=== PATIENT | female | born 1995 | race Caucasian/White ===

== ENCOUNTER 2016-07-04 04:24 | Emergency (ER) | payer OTHER ==
[2016-07-04 05:06] VITALS: RESP 16
[2016-07-04 05:23] LABS: Glucose,Whole Blood 406 mg/dL (75-99)
[2016-07-04] MEDS ORDERED: SODIUM CHLORIDE 0.9% 2,000 ML IV ONE (05:31)
--- NOTE | 2016-07-04 05:34 | ED ---
General Adult HPI - General Chief complaint: Recheck/Abnormal Lab/Rx Stated complaint: Hyperglycemia Time Seen by Provider: 07/04/16 05:08 Source: patient Mode of arrival: ambulatory Limitations: no limitations - History of Present Illness Initial comments: This patient is 21-year-old woman who presents with complaint that she checked her blood sugar tonight and it was over 400. Patient states that she has history of diabetes, and that her insurance lapsed and she is therefore not had any of her medication nor any testing supplies. The patient states she has been feeling rundown, having polyuria and polydipsia, and that a friend was able to check her blood sugar and found it to be she thinks 430s. Patient denies any symptoms of infection other than she had been having some right ear pressure. -: days(s) - Related Data Previous Rx's Medication Instructions Recorded Insulin Glargine [Lantus] 10 unit SQ DAILY #1 vial 07/04/16 Allergies Allergy/AdvReac Type Severity Reaction Status Date / Time phenol [From Chloraseptic] Allergy Unknown Verified 01/26/16 16:02 sodium phenolate Allergy Unknown Verified 01/26/16 16:02 [From Chloraseptic] Review of Systems ROS Statement: Those systems with pertinent positive or pertinent negative responses have been documented in the HPI. ROS Other: All systems not noted in ROS Statement are negative. Constitutional: Denies: fever, chills Eyes: Denies: vision change ENT: Reports: ear pain. Denies: throat pain, hearing loss, congestion Respiratory: Denies: cough, dyspnea Cardiovascular: Denies: chest pain, palpitations, edema, syncope Endocrine: Reports: fatigue, polydipsia, polyuria Gastrointestinal: Denies: abdominal pain, nausea, vomiting, diarrhea Genitourinary: Denies: dysuria, hematuria Musculoskeletal: Denies: arthralgia Skin: Denies: rash Neurological: Denies: headache, weakness, numbness Past Medical History Past Medical History: Asthma, Diabetes Mellitus, Hypertension Additional Past Medical History / Comment(s): PCOS, migraines, MOOD DISORDER, BORDERLINE PERSONALITY History of Any Multi-Drug Resistant Organisms: None Reported Past Surgical History: No Surgical Hx Reported Past Psychological History: Anxiety Smoking Status: Current every day smoker Past Alcohol Use History: None Reported Past Drug Use History: None Reported General Exam Limitations: no limitations General appearance: alert, in no apparent distress, obese Head exam: Present: atraumatic, normocephalic Eye exam: Present: normal appearance. Absent: scleral icterus, conjunctival injection ENT exam: Present: TM's normal bilaterally, normal external ear exam Neck exam: Present: normal inspection, full ROM. Absent: meningismus Respiratory exam: Present: normal lung sounds bilaterally. Absent: respiratory distress, wheezes, rales, rhonchi, stridor Cardiovascular Exam: Present: regular rate, normal rhythm, normal heart sounds. Absent: systolic murmur, diastolic murmur, rubs, gallop GI/Abdominal exam: Present: soft. Absent: tenderness, guarding, rebound, mass Extremities exam: Present: normal inspection, normal capillary refill. Absent: pedal edema, calf tenderness Back exam: Present: normal inspection. Absent: CVA tenderness (R), CVA tenderness (L) Neurological exam: Present: alert Skin exam: Present: warm, dry, intact, normal color. Absent: rash Course Vital Signs 07/04/16 05:03 Temperature 97.6 F Pulse Rate 105 H Respiratory 16 Rate Blood Pressure 135/83 O2 Sat by Pulse 97 Oximetry Medical Decision Making - Lab Data Result diagrams: 07/04/16 05:45 07/04/16 05:45 Lab Results 07/04/16 07/04/16 07/04/16 Range/Units 05:22 05:45 05:45 WBC (3.8-10.6) k/uL RBC (3.80-5.40) m/uL Hgb (11.4-16.0) gm/dL Hct (34.0-46.0) % MCV (80.0-100.0) fL MCH (25.0-35.0) pg MCHC (31.0-37.0) g/dL RDW (11.5-15.5) % Plt Count (150-450) k/uL Neutrophils % % Lymphocytes % % Monocytes % % Eosinophils % % Basophils % % Neutrophils # (1.3-7.7) k/uL Lymphocytes # (1.0-4.8) k/uL Monocytes # (0-1.0) k/uL Eosinophils # (0-0.7) k/uL Basophils # (0-0.2) k/uL Microcytosis Sodium 140 (137-145) mmol/L Potassium 4.1 (3.5-5.1) mmol/L Chloride 99 (98-107) mmol/L Carbon Dioxide 25 (22-30) mmol/L Anion Gap 16 mmol/L BUN 9 (7-17) mg/dL Creatinine 0.37 L (0.52-1.04) mg/dL Est GFR (MDRD) Af Amer >60 (>60 ml/min/1.73 sqM) Est GFR (MDRD) Non-Af >60 (>60 ml/min/1.73 sqM) Glucose 385 H (74-99) mg/dL POC Glucose (mg/dL) 406 H (75-99) mg/dL POC Glu Facilities Maintenance Assistant ID Nitin Dias Calcium 9.7 (8.4-10.2) mg/dL Urine Color Urine Appearance (Clear) Urine pH (5.0-8.0) Ur Specific [place] (1.001-1.035) Urine Protein (Negative) Urine Glucose (UA) (Negative) Urine Ketones (Negative) Urine Blood (Negative) Urine Nitrate (Negative) Urine Bilirubin (Negative) Urine Urobilinogen (<2.0) mg/dL Ur Leukocyte Esterase (Negative) Urine RBC (0-5) /hpf Urine WBC (0-5) /hpf Ur Squamous Epith Cells (0-4) /hpf Urine HCG, Qual (Not Detectd) Acetone, Qual Negative (Negative) 07/04/16 07/04/16 07/04/16 Range/Units 05:45 07:30 07:30 WBC 12.3 H (3.8-10.6) k/uL RBC 5.22 (3.80-5.40) m/uL Hgb 12.6 (11.4-16.0) gm/dL Hct 39.5 (34.0-46.0) % MCV 75.5 L (80.0-100.0) fL MCH 24.1 L (25.0-35.0) pg MCHC 32.0 (31.0-37.0) g/dL RDW 14.3 (11.5-15.5) % Plt Count 279 (150-450) k/uL Neutrophils % 64 % Lymphocytes % 29 % Monocytes % 3 % Eosinophils % 2 % Basophils % 1 % Neutrophils # 7.9 H (1.3-7.7) k/uL Lymphocytes # 3.5 (1.0-4.8) k/uL Monocytes # 0.4 (0-1.0) k/uL Eosinophils # 0.3 (0-0.7) k/uL Basophils # 0.1 (0-0.2) k/uL Microcytosis Slight Sodium (137-145) mmol/L Potassium (3.5-5.1) mmol/L Chloride (98-107) mmol/L Carbon Dioxide (22-30) mmol/L Anion Gap mmol/L BUN (7-17) mg/dL Creatinine (0.52-1.04) mg/dL Est GFR (MDRD) Af Amer (>60 ml/min/1.73 sqM) Est GFR (MDRD) Non-Af (>60 ml/min/1.73 sqM) Glucose (74-99) mg/dL POC Glucose (mg/dL) (75-99) mg/dL POC Glu Facilities Maintenance Assistant ID Calcium (8.4-10.2) mg/dL Urine Color Light Yellow Urine Appearance Clear (Clear) Urine pH 6.0 (5.0-8.0) Ur Specific [place] 1.032 (1.001-1.035) Urine Protein Negative (Negative) Urine Glucose (UA) 4+ H (Negative) Urine Ketones Negative (Negative) Urine Blood Moderate H (Negative) Urine Nitrate Negative (Negative) Urine Bilirubin Negative (Negative) Urine Urobilinogen <2.0 (<2.0) mg/dL Ur Leukocyte Esterase Negative (Negative) Urine RBC 2 (0-5) /hpf Urine WBC 3 (0-5) /hpf Ur Squamous Epith Cells 5 H (0-4) /hpf Urine HCG, Qual Not Detected (Not Detectd) Acetone, Qual (Negative) 07/04/16 Range/Units 07:31 WBC (3.8-10.6) k/uL RBC (3.80-5.40) m/uL Hgb (11.4-16.0) gm/dL Hct (34.0-46.0) % MCV (80.0-100.0) fL MCH (25.0-35.0) pg MCHC (31.0-37.0) g/dL RDW (11.5-15.5) % Plt Count (150-450) k/uL Neutrophils % % Lymphocytes % % Monocytes % % Eosinophils % % Basophils % % Neutrophils # (1.3-7.7) k/uL Lymphocytes # (1.0-4.8) k/uL Monocytes # (0-1.0) k/uL Eosinophils # (0-0.7) k/uL Basophils # (0-0.2) k/uL Microcytosis Sodium (137-145) mmol/L Potassium (3.5-5.1) mmol/L Chloride (98-107) mmol/L Carbon Dioxide (22-30) mmol/L Anion Gap mmol/L BUN (7-17) mg/dL Creatinine (0.52-1.04) mg/dL Est GFR (MDRD) Af Amer (>60 ml/min/1.73 sqM) Est GFR (MDRD) Non-Af (>60 ml/min/1.73 sqM) Glucose (74-99) mg/dL POC Glucose (mg/dL) 340 H (75-99) mg/dL POC Glu Facilities Maintenance Assistant ID Zulma Moss Calcium (8.4-10.2) mg/dL Urine Color Urine Appearance (Clear) Urine pH (5.0-8.0) Ur Specific [place] (1.001-1.035) Urine Protein (Negative) Urine Glucose (UA) (Negative) Urine Ketones (Negative) Urine Blood (Negative) Urine Nitrate (Negative) Urine Bilirubin (Negative) Urine Urobilinogen (<2.0) mg/dL Ur Leukocyte Esterase (Negative) Urine RBC (0-5) /hpf Urine WBC (0-5) /hpf Ur Squamous Epith Cells (0-4) /hpf Urine HCG, Qual (Not Detectd) Acetone, Qual (Negative) Disposition Clinical Impression: Hyperglycemia, Diabetes Disposition: HOME SELF-CARE Condition: Fair Instructions: Diabetic Hyperglycemia (ED) Prescriptions: Insulin Glargine [Lantus] 10 unit SQ DAILY #1 vial Referrals: Irineo Armstrong MD [Primary Care Provider] - 1-2 days
[2016-07-04 05:56] LABS: Basophils # (A) 0.1 k/uL (0-0.2); Basophils % (A) 1 %; CH 24.7; CHCM 32.8; Eosinophils # (A) 0.3 k/uL (0-0.7); Eosinophils % (A) 2 %; HCT 39.5 % (34.0-46.0); HDW 2.93; HGB 12.6 gm/dL (11.4-16.0); Luc % (Auto) 1; Lymphocytes # (A) 3.5 k/uL (1.0-4.8); Lymphocytes % (A) 29 %; MCH 24.1 pg (25.0-35.0); MCV 75.5 fL (80.0-100.0); Mean Platelet Volume 7.7; Microcytosis Slight; Monocytes # (A) 0.4 k/uL (0-1.0); Monocytes % (A) 3 %; Neutrophils # (A) 7.9 k/uL (1.3-7.7); Neutrophils % (A) 64 %; RBC 5.22 m/uL (3.80-5.40); RDW 14.3 % (11.5-15.5); WBC 12.3 k/uL (3.8-10.6); WBC (Perox) 12.44
[2016-07-04 06:07] LABS: Anion Gap 16 mmol/L; Blood Urea Nitrogen 9 mg/dL (7-17); Calcium 9.7 mg/dL (8.4-10.2); Carbon Dioxide 25 mmol/L (22-30); Chloride 99 mmol/L (98-107); Glucose 385 mg/dL (74-99); Non-African American GFR(MDRD) >60 (>60 ml/min/1.73 sqM); Potassium 4.1 mmol/L (3.5-5.1); Sodium 140 mmol/L (137-145)
[2016-07-04] MEDS ORDERED: IBUPROFEN 400 MG TAB PO STA (06:17)
[2016-07-04] MEDS ORDERED: ACETAMINOPHEN TAB 325 MG TAB PO STA (06:17)
[2016-07-04] MEDS ORDERED: INSULIN REGULAR 100 UNIT/ML VIAL SQ STA (06:53)
[2016-07-04 07:32] LABS: Glucose,Whole Blood 340 mg/dL (75-99)
[2016-07-04 07:49] LABS: Appearance,Urine Clear (Clear); Bilirubin,Urine Negative (Negative); Glucose,Urine (UA) 4+ (Negative); Ketones,Urine Negative (Negative); Leukocyte Esterase,Urine Negative (Negative); Nitrite,Urine Negative (Negative); Particle Count 1560; Protein,Urine Negative (Negative); RBC,Urine 2 /hpf (0-5); Specific Gravity,Urine 1.032 (1.001-1.035); Squamous Epithelial Cell,Urine 5 /hpf (0-4); UA Billing (MACRO vs. MICRO) MICRO; Urobilinogen,Urine <2.0 mg/dL (<2.0); WBC,Urine 3 /hpf (0-5)
[2016-07-04] MEDS ORDERED: INSULIN LISPRO (humaLOG) 300 UNIT/3 ML VIAL SQ ONE (08:05)
[2016-07-04 08:58] LABS: Glucose,Whole Blood 312 mg/dL (75-99)
[2016-07-04 09:12] VITALS: BP 113/56; PULSE 90; TEMP 97.4
== END 2016-07-04 09:28 | disposition home or self-care (01) ==
LOC: EC 04:24
DX: E11.65 Type 2 diabetes mellitus with hyperglycemia (principal); E66.9 Obesity, unspecified; F17.200 Nicotine dependence, unspecified, uncomplicated; Z88.8 Allergy status to other drugs, medicaments and biological substances; Z79.4 Long term (current) use of insulin
CPT/HCPCS: 36415; 80048; 81001; 81025; 82009; 85025; 96360; 96361; 99283

== ENCOUNTER 2016-11-03 21:59 | Emergency (ER) | payer OTHER ==
[2016-11-03 22:05] VITALS: TEMP 99.9
[2016-11-03] MEDS ORDERED: KETOROLAC 60 MG/2 ML VIAL IM STA (22:28)
[2016-11-03] MEDS ORDERED: CYCLOBENZAPRINE 10 MG TAB PO STA (22:28)
--- NOTE | 2016-11-03 22:31 | ED ---
General Adult HPI - General Chief complaint: Extremity Injury, Upper Stated complaint: back pain Time Seen by Provider: 11/03/16 22:14 Source: patient, RN notes reviewed Mode of arrival: ambulatory Limitations: no limitations - History of Present Illness Initial comments: Patient's 21-year-old female presents to the emergency room for evaluation of back pain. Patient states yesterday while at work she was bending down to pick something up and felt a sharp pain in her mid right back. Patient states she thought the pain would go away this morning. Patient states she woke up and began having worsening pain. Patient states that she took Naprosyn with no relief of symptoms. Patient states it causes her pain to walk or move. Patient denies paresthesias. Patient denies saddle anesthesia. Patient denies urinary fecal incontinence. Patient denies any pain over her spine. Patient denies any fall or trauma to her back. - Related Data Home Medications Medication Instructions Recorded Confirmed Naproxen Sodium [Aleve] 220 mg PO DAILY PRN 11/03/16 11/03/16 Previous Rx's Medication Instructions Recorded traMADol HCl [Ultram] 50 mg PO Q4H PRN #15 tab 11/03/16 Allergies Allergy/AdvReac Type Severity Reaction Status Date / Time phenol [From Chloraseptic] Allergy Unknown Verified 11/03/16 22:21 sodium phenolate Allergy Unknown Verified 11/03/16 22:21 [From Chloraseptic] Review of Systems ROS Statement: Those systems with pertinent positive or pertinent negative responses have been documented in the HPI. ROS Other: All systems not noted in ROS Statement are negative. Past Medical History Past Medical History: Asthma, Diabetes Mellitus, Hypertension Additional Past Medical History / Comment(s): PCOS, migraines, MOOD DISORDER, BORDERLINE PERSONALITY History of Any Multi-Drug Resistant Organisms: None Reported Past Surgical History: No Surgical Hx Reported Past Psychological History: Anxiety Smoking Status: Current every day smoker Past Alcohol Use History: None Reported Past Drug Use History: None Reported General Exam - General Exam Comments Initial Comments: Sitting in exam room, no acute distress. Limitations: no limitations General appearance: alert, in no apparent distress Head exam: Present: atraumatic, normocephalic, normal inspection Eye exam: Present: normal appearance ENT exam: Present: normal exam Neck exam: Present: normal inspection Respiratory exam: Present: normal lung sounds bilaterally. Absent: respiratory distress Extremities exam: Present: normal inspection Back exam: Present: paraspinal tenderness (Paraspinal tenderness on the right thoracic spine area) Neurological exam: Present: alert, oriented X3, CN II-XII intact Psychiatric exam: Present: normal affect, normal mood Skin exam: Present: warm, dry, intact, normal color. Absent: rash Course Vital Signs 11/03/16 11/03/16 22:01 23:07 Temperature 99.9 F H Pulse Rate 102 H 89 Respiratory 20 16 Rate Blood Pressure 160/114 134/81 O2 Sat by Pulse 98 95 Oximetry Medical Decision Making - Medical Decision Making Patient is a 21-year-old female presents to the emergency room for evaluation of right upper back pain. X-ray shows no acute findings. Patient will be sent home with pain medications and advised follow-up with primary care provider symptoms are not improving. Patient states she understands everything that was discussed with her. Return parameters discussed. Case discussed with Dr. Zheng. - Radiology Data Radiology results: report reviewed, image reviewed Disposition Clinical Impression: Muscle strain of right upper back Disposition: HOME SELF-CARE Condition: Good Instructions: Thoracic Back Strain (ED) Additional Instructions: Continue taking ibuprofen or Naprosyn as needed for pain. Take tramadol as needed for severe pain. Warm moist heat. Please follow-up with primary care provider if symptoms are not improving. Refrain from heavy lifting or strenuous physical activity for the next 7-10 days. If any new symptom arises or symptoms worse, return to ER as soon as possible. Prescriptions: traMADol HCl [Ultram] 50 mg PO Q4H PRN #15 tab PRN Reason: Pain Referrals: Mikel Mauro MD [Primary Care Provider] - 1-2 days Time of Disposition: 23:05
--- NOTE | 2016-11-03 22:54 | XR ---
EXAM: XR Thoracic Spine, 3 Views CLINICAL HISTORY: Reason: Pain TECHNIQUE: Frontal, lateral and swimmer's views of the thoracic spine. COMPARISON: No relevant prior studies available. FINDINGS: Vertebrae: No acute fracture or malalignment. Disc spaces: Subtle multilevel endplate irregularity in the lower thoracic spine; differential includes degenerative change versus Scheuermann's disease. Soft tissues: Unremarkable. IMPRESSION: 1. No acute fracture or malalignment. 2. Subtle multilevel endplate irregularity in the lower thoracic spine; differential includes degenerative change versus Scheuermann's disease.
[2016-11-03] MEDS ORDERED: HYDROmorphone 1 MG/ML 1 ML SYRINGE IM STA (23:03)
[2016-11-03 23:07] VITALS: BP 134/81; PULSE 89; RESP 16
== END 2016-11-03 23:20 | disposition home or self-care (01) ==
LOC: EC 21:59
DX: S29.012A Strain of muscle and tendon of back wall of thorax, initial encounter (principal); F17.200 Nicotine dependence, unspecified, uncomplicated; Z88.8 Allergy status to other drugs, medicaments and biological substances; X58.XXXA Exposure to other specified factors, initial encounter
CPT/HCPCS: 72072; 99283; 96372 ×2; J1885; J1170

== ENCOUNTER 2017-06-15 19:14 | Emergency (ER) | payer OTHER ==
--- NOTE | 2017-06-15 20:15 | ED ---
General Adult HPI - General Chief complaint: Abdominal Pain Stated complaint: abdominal pain/vomiting/migraine Time Seen by Provider: 06/15/17 20:12 Source: patient Mode of arrival: ambulatory Limitations: no limitations - History of Present Illness Initial comments: Serina is a morbidly obese 22-year-old female past medical history of type 2 diabetes who presents to the emergency department today for evaluation of 1 day of nausea, vomiting and diarrhea. Patient reports that due to insurance issues she has not been able to get any medications for her diabetes for approximately one year. She does report that she was previously on insulin as well as metformin. She states that she has not checked her blood glucose in over a year either. She states that today she woke up with some crampy abdominal pain and subsequently developed nonbloody diarrhea as well as nausea and WANTS to nonbloody nonbilious emesis. Patient reports that no one else at home has similar symptoms and that they all ate the same food. She doesn't believe she ate any thing that would've caused this. She does know multiple people who have similar symptoms. Patient describes her pain is diffuse, cramping with stabbing pain that migrates all over her abdomen. She cannot identify one spot that is worse in any of the others. Patient denies any fevers, chills she does report episodes of diaphoresis when vomiting. She denies any chest pain or shortness of breath. She has no history of any GI pathology, gastroparesis, inflammatory bowel disease. She reports that she has not been compliant with any medications or seen any physicians in nearly a year. - Related Data Previous Rx's Medication Instructions Recorded Ondansetron Odt [Zofran Odt] 4 mg PO Q12HR PRN #8 tab 06/15/17 metFORMIN HCL [Glucophage] 500 mg PO BID #60 tab 06/15/17 Allergies Allergy/AdvReac Type Severity Reaction Status Date / Time phenol [From Chloraseptic] Allergy Unknown Verified 06/15/17 19:55 sodium phenolate Allergy Unknown Verified 06/15/17 19:55 [From Chloraseptic] Review of Systems ROS Statement: Those systems with pertinent positive or pertinent negative responses have been documented in the HPI. ROS Other: All systems not noted in ROS Statement are negative. Constitutional: Reports: chills ENT: Denies: ear pain, throat pain Respiratory: Denies: cough, dyspnea Cardiovascular: Reports: palpitations. Denies: chest pain Endocrine: Reports: fatigue Gastrointestinal: Reports: abdominal pain, nausea, vomiting, diarrhea. Denies: constipation, hematemesis, melena, hematochezia Genitourinary: Denies: urgency, dysuria, abnormal menses Musculoskeletal: Denies: back pain Skin: Denies: rash, lesions Neurological: Denies: headache, weakness Psychiatric: Denies: anxiety, depression Hematological/Lymphatic: Denies: easy bleeding, easy bruising Past Medical History Past Medical History: Asthma, Diabetes Mellitus, Hypertension Additional Past Medical History / Comment(s): PCOS, migraines, MOOD DISORDER, BORDERLINE PERSONALITY History of Any Multi-Drug Resistant Organisms: None Reported Past Surgical History: No Surgical Hx Reported Past Psychological History: Anxiety Smoking Status: Current every day smoker Past Alcohol Use History: None Reported Past Drug Use History: Marijuana General Exam Limitations: no limitations General appearance: alert, obese Head exam: Present: atraumatic, normocephalic Eye exam: Present: PERRL ENT exam: Present: mucous membranes dry Neck exam: Present: normal inspection Respiratory exam: Absent: respiratory distress, wheezes Cardiovascular Exam: Present: normal rhythm, tachycardia GI/Abdominal exam: Present: soft, tenderness, normal bowel sounds. Absent: distended, guarding, rebound, rigid, diminished bowel sounds, hyperactive bowel sounds, hypoactive bowel sounds, organomegaly, mass, bruit, pulsatile mass Extremities exam: Present: full ROM, normal capillary refill. Absent: pedal edema Back exam: Present: normal inspection Neurological exam: Present: alert, oriented X3, normal gait Psychiatric exam: Present: anxious Skin exam: Present: warm, dry Course Vital Signs 06/15/17 06/15/17 06/15/17 19:28 21:11 22:53 Temperature 99.8 F H 100.4 F H 98.6 F Pulse Rate 120 H 110 H 102 H Respiratory 18 20 16 Rate Blood Pressure 130/82 121/67 126/68 O2 Sat by Pulse 96 98 95 Oximetry 06/15/17 06/16/17 23:41 00:38 Temperature 98.6 F Pulse Rate 100 Respiratory 20 Rate Blood Pressure 135/65 O2 Sat by Pulse 96 Oximetry Medical Decision Making - Medical Decision Making Patient was seen and evaluated, history was obtained from the patient Patient with a medical history of insulin-dependent diabetes, noncompliant with medications for greater than 1 year presenting with nausea, vomiting and diarrhea. On exam the patient appears dehydrated. [id number] glucose was greater than 250 Workup for possible DKA was initiated IV fluids and Zofran given Labs with no evidence of DKA, no evidence of PRO is noted to be hyperglycemic with mildly elevated liver enzymes due to the patient's diffuse abdominal pain and elevated liver enzymes but the CT and in ultrasound were ordered Neither CT or ultrasound revealed any acute pathology, both confirmed a diagnosis of fatty liver. Patient reports feeling better after first liter fluid however her lactic acid is elevated at 3.1 therefore I will give additional liter fluid. Patient's tachycardia resolved and she is resting comfortably in bed. I discussed with the patient her need to control her diabetes, she does state that she was previously on metformin however due to insurance issues she has not had any medications for one year. Advised her that I believe metformin is available at a relatively inexpensive cost through multiple different pharmacies and that I will plan to prescribe her metformin. An extensive conversation with the patient regarding the importance of diabetes management in the possibility of kidney and microvascular damage from uncontrolled diabetes. Patient expressed understanding of this. Patient was again reevaluated after second liter fluid. Heart rate has improved she remains hemodynamically stable and in no acute distress. At this time patient would like to be discharged home. I advised her I will prescribe by mouth Zofran for her nausea. I advised her that I will not prescribe anything for the diarrhea as I feel it is important that she just maintains hydration. Patient expressed understanding of this. Upon standing believe the patient experienced nausea and had an episode of nonbloody nonbilious emesis. Additional medications were ordered but the patient chose to be discharged. - Lab Data Result diagrams: 06/15/17 21:04 06/15/17 21:04 Lab Results 06/15/17 06/15/17 06/15/17 Range/Units 20:30 20:30 20:36 WBC (3.8-10.6) k/uL RBC (3.80-5.40) m/uL Hgb (11.4-16.0) gm/dL Hct (34.0-46.0) % MCV (80.0-100.0) fL MCH (25.0-35.0) pg MCHC (31.0-37.0) g/dL RDW (11.5-15.5) % Plt Count (150-450) k/uL Neutrophils % % Lymphocytes % % Monocytes % % Eosinophils % % Basophils % % Neutrophils # (1.3-7.7) k/uL Lymphocytes # (1.0-4.8) k/uL Monocytes # (0-1.0) k/uL Eosinophils # (0-0.7) k/uL Basophils # (0-0.2) k/uL VBG pH (7.31-7.41) VBG pCO2 (37-51) mmHg VBG HCO3 (24-28) mmol/L Sodium (137-145) mmol/L Potassium (3.5-5.1) mmol/L Chloride (98-107) mmol/L Carbon Dioxide (22-30) mmol/L Anion Gap mmol/L BUN (7-17) mg/dL Creatinine (0.52-1.04) mg/dL Est GFR (MDRD) Af Amer (>60 ml/min/1.73 sqM) Est GFR (MDRD) Non-Af (>60 ml/min/1.73 sqM) Glucose (74-99) mg/dL POC Glucose (mg/dL) 278 H (75-99) mg/dL POC Glu Cream Beater ID Paulina Loaiza Osmolality ([id number]) mosm/kg Lactic Ac Sepsis Rflx Plasma Lactic Acid Castro (0.7-2.0) mmol/L Calcium (8.4-10.2) mg/dL Magnesium (1.6-2.3) mg/dL Total Bilirubin (0.2-1.3) mg/dL AST (14-36) U/L ALT (9-52) U/L Alkaline Phosphatase (38-126) U/L Total Protein (6.3-8.2) g/dL Albumin (3.5-5.0) g/dL Lipase (23-300) U/L Urine Color Yellow Urine Appearance Cloudy H (Clear) Urine pH 5.5 (5.0-8.0) Ur Specific Mccrory 1.034 (1.001-1.035) Urine Protein 1+ H (Negative) Urine Glucose (UA) 4+ H (Negative) Urine Ketones 2+ H (Negative) Urine Blood Negative (Negative) Urine Nitrite Negative (Negative) Urine Bilirubin Negative (Negative) Urine Urobilinogen <2.0 (<2.0) mg/dL Ur Leukocyte Esterase Negative (Negative) Urine RBC 2 (0-5) /hpf Urine WBC 8 H (0-5) /hpf Ur Squamous Epith Cells 15 H (0-4) /hpf Urine Bacteria Rare H (None) /hpf Urine Mucus Rare H (None) /hpf Urine HCG, Qual Not Detected (Not Detectd) Acetone, Qual (Negative) 06/15/17 06/15/17 06/15/17 Range/Units 21:04 21:04 21:04 WBC 12.7 H (3.8-10.6) k/uL RBC 5.85 H (3.80-5.40) m/uL Hgb 14.5 (11.4-16.0) gm/dL Hct 45.8 (34.0-46.0) % MCV 78.3 L (80.0-100.0) fL MCH 24.8 L (25.0-35.0) pg MCHC 31.6 (31.0-37.0) g/dL RDW 15.8 H (11.5-15.5) % Plt Count 226 (150-450) k/uL Neutrophils % 91 % Lymphocytes % 5 % Monocytes % 2 % Eosinophils % 1 % Basophils % 0 % Neutrophils # 11.6 H (1.3-7.7) k/uL Lymphocytes # 0.7 L (1.0-4.8) k/uL Monocytes # 0.2 (0-1.0) k/uL Eosinophils # 0.1 (0-0.7) k/uL Basophils # 0.1 (0-0.2) k/uL VBG pH 7.40 (7.31-7.41) VBG pCO2 38 (37-51) mmHg VBG HCO3 23 L (24-28) mmol/L Sodium 137 (137-145) mmol/L Potassium 4.4 (3.5-5.1) mmol/L Chloride 98 (98-107) mmol/L Carbon Dioxide 22 (22-30) mmol/L Anion Gap 17 mmol/L BUN 13 (7-17) mg/dL Creatinine 0.40 L (0.52-1.04) mg/dL Est GFR (MDRD) Af Amer >60 (>60 ml/min/1.73 sqM) Est GFR (MDRD) Non-Af >60 (>60 ml/min/1.73 sqM) Glucose 295 H (74-99) mg/dL POC Glucose (mg/dL) (75-99) mg/dL POC Glu Cream Beater ID Osmolality 291 (280-301) mosm/kg Lactic Ac Sepsis Rflx Plasma Lactic Acid Castro (0.7-2.0) mmol/L Calcium 9.7 (8.4-10.2) mg/dL Magnesium 1.4 L (1.6-2.3) mg/dL Total Bilirubin 0.6 (0.2-1.3) mg/dL AST 38 H (14-36) U/L ALT 80 H (9-52) U/L Alkaline Phosphatase 104 (38-126) U/L Total Protein 7.7 (6.3-8.2) g/dL Albumin 4.5 (3.5-5.0) g/dL Lipase 45 (23-300) U/L Urine Color Urine Appearance (Clear) Urine pH (5.0-8.0) Ur Specific Mccrory (1.001-1.035) Urine Protein (Negative) Urine Glucose (UA) (Negative) Urine Ketones (Negative) Urine Blood (Negative) Urine Nitrite (Negative) Urine Bilirubin (Negative) Urine Urobilinogen (<2.0) mg/dL Ur Leukocyte Esterase (Negative) Urine RBC (0-5) /hpf Urine WBC (0-5) /hpf Ur Squamous Epith Cells (0-4) /hpf Urine Bacteria (None) /hpf Urine Mucus (None) /hpf Urine HCG, Qual (Not Detectd) Acetone, Qual Negative (Negative) 06/15/17 06/15/17 Range/Units 21:04 21:28 WBC (3.8-10.6) k/uL RBC (3.80-5.40) m/uL Hgb (11.4-16.0) gm/dL Hct (34.0-46.0) % MCV (80.0-100.0) fL MCH (25.0-35.0) pg MCHC (31.0-37.0) g/dL RDW (11.5-15.5) % Plt Count (150-450) k/uL Neutrophils % % Lymphocytes % % Monocytes % % Eosinophils % % Basophils % % Neutrophils # (1.3-7.7) k/uL Lymphocytes # (1.0-4.8) k/uL Monocytes # (0-1.0) k/uL Eosinophils # (0-0.7) k/uL Basophils # (0-0.2) k/uL VBG pH (7.31-7.41) VBG pCO2 (37-51) mmHg VBG HCO3 (24-28) mmol/L Sodium (137-145) mmol/L Potassium (3.5-5.1) mmol/L Chloride (98-107) mmol/L Carbon Dioxide (22-30) mmol/L Anion Gap mmol/L BUN (7-17) mg/dL Creatinine (0.52-1.04) mg/dL Est GFR (MDRD) Af Amer (>60 ml/min/1.73 sqM) Est GFR (MDRD) Non-Af (>60 ml/min/1.73 sqM) Glucose (74-99) mg/dL POC Glucose (mg/dL) (75-99) mg/dL POC Glu Cream Beater ID Osmolality ([id number]) mosm/kg Lactic Ac Sepsis Rflx Y Plasma Lactic Acid Castro 3.1 H* (0.7-2.0) mmol/L Calcium (8.4-10.2) mg/dL Magnesium (1.6-2.3) mg/dL Total Bilirubin (0.2-1.3) mg/dL AST (14-36) U/L ALT (9-52) U/L Alkaline Phosphatase (38-126) U/L Total Protein (6.3-8.2) g/dL Albumin (3.5-5.0) g/dL Lipase (23-300) U/L Urine Color Urine Appearance (Clear) Urine pH (5.0-8.0) Ur Specific Mccrory (1.001-1.035) Urine Protein (Negative) Urine Glucose (UA) (Negative) Urine Ketones (Negative) Urine Blood (Negative) Urine Nitrite (Negative) Urine Bilirubin (Negative) Urine Urobilinogen (<2.0) mg/dL Ur Leukocyte Esterase (Negative) Urine RBC (0-5) /hpf Urine WBC (0-5) /hpf Ur Squamous Epith Cells (0-4) /hpf Urine Bacteria (None) /hpf Urine Mucus (None) /hpf Urine HCG, Qual (Not Detectd) Acetone, Qual (Negative) Disposition Clinical Impression: Hyperglycemia, Medical non-compliance, Diarrhea Disposition: HOME SELF-CARE Condition: Good Instructions: Hyperosmolar Hyperglycemic State (ED), Managing Diabetes During Sick Days (ED) Prescriptions: metFORMIN HCL [Glucophage] 500 mg PO BID #60 tab Ondansetron Odt [Zofran Odt] 4 mg PO Q12HR PRN #8 tab PRN Reason: Nausea Referrals: Mikel Mauro MD [Primary Care Provider] - 1-2 days Time of Disposition: 00:18
[2017-06-15 20:38] LABS: Glucose,Whole Blood 278 mg/dL (75-99)
[2017-06-15] MEDS ORDERED: SODIUM CHLORIDE 0.9% 1,000 ML IV ONE ×2 (20:40→22:58)
[2017-06-15 20:48] LABS: Appearance,Urine Cloudy (Clear); Bacteria,Urine Rare /hpf; Bilirubin,Urine Negative (Negative); Blood,Urine Negative (Negative); Color,Urine Yellow; Glucose,Urine (UA) 4+ (Negative); Leukocyte Esterase,Urine Negative (Negative); Mucus,Urine Rare /hpf; Nitrite,Urine Negative (Negative); PH, Urine 5.5 (5.0-8.0); Protein,Urine 1+ (Negative); RBC,Urine 2 /hpf (0-5); Specific Gravity,Urine 1.034 (1.001-1.035); Squamous Epithelial Cell,Urine 15 /hpf (0-4); Urobilinogen,Urine <2.0 mg/dL (<2.0); WBC,Urine 8 /hpf (0-5)
[2017-06-15 21:11] LABS: Ketones,Urine 2+ (Negative)
[2017-06-15 21:14] LABS: VBG PH 7.4 (7.31-7.41)
[2017-06-15 21:15] LABS: Basophils # (A) 0.1 k/uL (0-0.2); Basophils % (A) 0 %; Eosinophils # (A) 0.1 k/uL (0-0.7); Eosinophils % (A) 1 %; HCT 45.8 % (34.0-46.0); HGB 14.5 gm/dL (11.4-16.0); Lymphocytes # (A) 0.7 k/uL (1.0-4.8); Lymphocytes % (A) 5 %; MCH 24.8 pg (25.0-35.0); MCHC 31.6 g/dL (31.0-37.0); MCV 78.3 fL (80.0-100.0); Mean Platelet Volume 7.4; Monocytes # (A) 0.2 k/uL (0-1.0); Monocytes % (A) 2 %; Neutrophils # (A) 11.6 k/uL (1.3-7.7); Neutrophils % (A) 91 %; Platelet Count 226 k/uL (150-450); RBC 5.85 m/uL (3.80-5.40); RDW 15.8 % (11.5-15.5); WBC 12.7 k/uL (3.8-10.6)
[2017-06-15 21:25] LABS: ALT 80 U/L (9-52); AST 38 U/L (14-36); Albumin 4.5 g/dL (3.5-5.0); Alkaline Phosphatase 104 U/L (38-126); Anion Gap 17 mmol/L; Blood Urea Nitrogen 13 mg/dL (7-17); Calcium 9.7 mg/dL (8.4-10.2); Carbon Dioxide 22 mmol/L (22-30); Chloride 98 mmol/L (98-107); Glucose 295 mg/dL (74-99); Lipase 45 U/L (23-300); Magnesium 1.4 mg/dL (1.6-2.3); Potassium 4.4 mmol/L (3.5-5.1); Sodium 137 mmol/L (137-145); Total Bilirubin 0.6 mg/dL (0.2-1.3); Total Protein 7.7 g/dL (6.3-8.2)
[2017-06-15] MEDS ORDERED: RX INFO: IV CONTRAST WAS GIVEN 1 EACH MISC MISCELLANE PRN (21:44)
[2017-06-15] MEDS ORDERED: MORPHINE SULFATE 5 MG/ML SYRINGE IVP STA (22:10)
--- NOTE | 2017-06-15 22:34 | CT ---
EXAMINATION TYPE: CT abdomen pelvis w con DATE OF EXAM: 06/15/2017 COMPARISON: NONE HISTORY: Abd pain. N/V/D. CT DLP: 2501.3 mGycm Automated exposure control for dose reduction was used. TECHNIQUE: Helical acquisition of images was performed from the lung bases through the pelvis. CONTRAST: Performed without Oral Contrast and with IV Contrast, patient injected with 100ml mL of Omnipaque 300 . FINDINGS: Lung bases are clear of consolidation. There is no pleural effusion. There is fatty infiltration of t he liver. Spleen shows no focal defect. Spleen is enlarged and measures 16 cm. There is no pancreatic mass. Gallbladder appears normal. Bile ducts are not dilated. There is no adrenal mass. Kidneys show satisfactory contrast opacification. There is no hydronephrosi s. I see no intestinal wall thickening. There are no dilated loops. Appendix appears normal. There is no evidence of a pelvic mass. Bladder distends smoothly. There is no ascites. There is a 2 cm cyst o n the right ovary. Bony structures are intact. Uterus is anteverted.: IMPRESSION: FATTY INFILTRATION OF THE LIVER. RIGHT OVARIAN CYST. NO SIGN OF ACUTE ABDOMEN AND PELVIS. There is he patosplenomegaly.
--- NOTE | 2017-06-15 22:44 | US ---
EXAMINATION TYPE: US abdomen limited DATE OF EXAM: 06/15/2017 COMPARISON: NONE CLINICAL HISTORY: Pain. Abn labs, pain and vomiting EXAM MEASUREMENTS: Liver Length: 24.3 cm Gallbladder Wall: 0.28 cm CBD: 0.51 cm Right Kidney: 13.5 x 5.3 x 6.1 cm Pancreas: Obscured by bowel gas Liver: Increased attenuation hepatomegaly Gallbladder: No stones seen Evidence for sonographic Loera's sign: No CBD: wnl Right Kidney: No hydronephrosis or masses seen Exam limitations due to body habitus IMPRESSION: No gallstones or dilated ducts. Hepatomegaly. Echogenic liver consistent with fatty infil tration. No free fluid.
[2017-06-15] MEDS ORDERED: ONDANSETRON 4 MG/2 ML VIAL IVP STA (22:46)
[2017-06-15] MEDS ORDERED: MAGNESIUM SULFATE-D5W PMX 1 GM in DEXTROSE/WATER 1 100ML.BAG IVPB ONE (22:58)
[2017-06-15] MEDS ORDERED: INSULIN REGULAR 100 UNIT/ML VIAL SQ ONE (22:59)
[2017-06-16] MEDS ORDERED: METOCLOPRAMIDE 5 MG/ML 2 ML VIAL IVP STA (00:39)
[2017-06-16] MEDS ORDERED: diphenhydrAMINE 50 MG/ML 1 ML VIAL IVP STA (00:39)
[2017-06-16 23:12] VITALS: BP 135/65; PULSE 100; RESP 20; TEMP 98.6
== END 2017-06-16 00:39 | disposition home or self-care (01) ==
LOC: EC 19:14
DX: E11.65 Type 2 diabetes mellitus with hyperglycemia (principal); R19.7 Diarrhea, unspecified; E66.01 Morbid (severe) obesity due to excess calories; F17.200 Nicotine dependence, unspecified, uncomplicated; Z68.41 Body mass index [BMI] 40.0-44.9, adult; Z91.19 Patient's noncompliance with other medical treatment and regimen; Z91.048 Other nonmedicinal substance allergy status
CPT/HCPCS: 36415; 83930; 80053; 82803; 82009; 83605; 83690; 83735; 85025; 81001; 81025; 87040; 76705; 74177; 99284; 96365; 96375 ×2; 96361 ×2; J2405; J3475; Q9967; J2274; 87077; 87186

== ENCOUNTER 2018-03-31 20:20 | Emergency (ER) | payer OTHER ==
[2018-03-31] MEDS ORDERED: KETOROLAC 30 MG/ML 1 ML VIAL IVP STA (21:12)
[2018-03-31] MEDS ORDERED: diphenhydrAMINE 50 MG/ML 1 ML VIAL IVP STA (21:12)
[2018-03-31] MEDS ORDERED: SODIUM CHLORIDE 0.9% 1,000 ML IV ONE (21:12)
[2018-03-31] MEDS ORDERED: METOCLOPRAMIDE 5 MG/ML 2 ML VIAL IVP STA (21:12)
--- NOTE | 2018-03-31 21:28 | ED ---
Female Urogenital HPI - General Source: patient Mode of arrival: ambulatory Limitations: no limitations - History of Present Illness Last Menstrual Period: 03/24/18 <Suzanne Oliver - Last Filed: 04/01/18 02:57> <Niecy Vaca - Last Filed: 04/01/18 03:08> - General Chief complaint: Vaginal Bleeding Stated complaint: poss miscarriage Time Seen by Provider: 03/31/18 20:39 - History of Present Illness Initial comments: 22-year-old female patient presents to the emergency department today for evaluation of lower abdominal pain and heavy vaginal bleeding. Patient states that her last period ended March 19 after 6 days of light vaginal bleeding. Patient states that she started having vaginal bleeding again yesterday and pain to the right lower quadrant. Patient states that the bleeding has been heavy and she has been passing large blood clots. Patient states she has had to change her tampon every 15 minutes. States the blood clots or the size of the palm of her hand. She also reports migraine headache for the last 5 days. Patient states that she has been taking ibuprofen for the headache but has not been helping. Patient does not have history of migraines the left lasted this long. States that she has had similar shoulder and duration. States that the pain is located all over her head. Denies any blurred vision, double vision, weakness, numbness, or tingling. Denies any nausea or vomiting. Patient denies any recent rash, fever, chills, shortness breath, chest pain, diarrhea, constipation, back pain, hematuria, dysuria, urinary urgency, urinary frequency , headache, visual changes, or any other complaints. (Suzanne Oliver) - Related Data Home Medications Medication Instructions Recorded Confirmed Ibuprofen [Motrin] 800 mg PO TID PRN 03/31/18 03/31/18 Allergies Allergy/AdvReac Type Severity Reaction Status Date / Time phenol [From Chloraseptic] Allergy Anaphylaxis Verified 03/31/18 21:13 sodium phenolate Allergy Anaphylaxis Verified 03/31/18 21:13 [From Chloraseptic] Review of Systems ROS Other: All systems not noted in ROS Statement are negative. <Suzanne Oliver - Last Filed: 04/01/18 02:57> ROS Other: All systems not noted in ROS Statement are negative. <Niecy Vaca - Last Filed: 04/01/18 03:08> ROS Statement: Those systems with pertinent positive or pertinent negative responses have been documented in the HPI. Past Medical History Past Medical History: Asthma, Diabetes Mellitus, Hypertension Additional Past Medical History / Comment(s): PCOS, migraines, MOOD DISORDER, BORDERLINE PERSONALITY History of Any Multi-Drug Resistant Organisms: None Reported Past Surgical History: Orthopedic Surgery Additional Past Surgical History / Comment(s): right knee surgery Past Psychological History: Anxiety Smoking Status: Current every day smoker Past Alcohol Use History: None Reported Past Drug Use History: None Reported <Suzanne Oliver M - Last Filed: 04/01/18 02:57> General Exam Limitations: no limitations General appearance: alert, in no apparent distress, other (This is a well- developed, well-nourished adult female patient in no acute distress. Vital signs upon presentation are temperature 98.2F, pulse 105, respirations 20, blood pressure 154/94, pulse ox 98% on room air.) Eye exam: Present: normal appearance, PERRL, EOMI. Absent: scleral icterus, conjunctival injection, nystagmus, periorbital swelling ENT exam: Present: normal exam, normal oropharynx, mucous membranes moist Respiratory exam: Present: normal lung sounds bilaterally. Absent: respiratory distress, wheezes, rales, rhonchi, stridor Cardiovascular Exam: Present: regular rate, normal rhythm, normal heart sounds. Absent: systolic murmur, diastolic murmur, rubs, gallop, clicks GI/Abdominal exam: Present: soft, tenderness (Right lower quadrant), normal bowel sounds. Absent: distended, guarding, rebound, rigid Neurological exam: Present: alert, oriented X3, CN II-XII intact Expanded Speech: Present: fluid speech Cranial nerves: EOM's Intact: Normal, Tongue Deviation: Normal, Nystagmus: Normal Motor strength exam: RUE: 5, LUE: 5, RLE: 5, LLE: 5 Psychiatric exam: Present: normal affect, normal mood Skin exam: Present: warm, dry, intact, normal color. Absent: rash <Suzanne Oliver M - Last Filed: 04/01/18 02:57> Vital Signs 03/31/18 03/31/18 04/01/18 20:30 22:35 00:19 Temperature 98.2 F 97.9 F Pulse Rate 105 H 79 78 Respiratory 20 16 18 Rate Blood Pressure 154/94 127/79 108/70 O2 Sat by Pulse 98 98 98 Oximetry Medical Decision Making - Lab Data Result diagrams: 03/31/18 21:35 03/31/18 21:35 - Radiology Data Radiology results: report reviewed <Suzanne Oliver - Last Filed: 04/01/18 02:57> - Lab Data Result diagrams: 03/31/18 21:35 03/31/18 21:35 <Niecy Vaca - Last Filed: 04/01/18 03:08> - Medical Decision Making 22-year-old female patient presents to the emergency department today for evaluation of heavy vaginal bleeding and headache. Physical examination is relatively unremarkable. Abdomen did reveal some mild right lower quadrant tenderness. Labs reviewed and are unremarkable. Patient did have a transvaginal ultrasound showed normal uterus and endometrium. There was a 3 cm cyst on the right ovary. Upon reevaluation patient's headache has resolved. I did offer to perform pelvic examination to further evaluate the bleeding, patient refused stating that she would rather follow-up with her applications systems engineer. Vital signs are stable. She will be discharged home at this time to follow-up with her primary care physician for recheck in 1-2 days. She is instructed to follow-up with her applications systems engineer for recheck as soon as possible. Return parameters discussed in detail. She verbalizes understanding and agrees with this plan. (Suzanne Oliver) I was available for consultation in the emergency department. The history and physical exam were done by the midlevel provider. I was consulted for this patient's care. I reviewed the case with the midlevel provider and based on their presentation of the patient, I agree with the assessment, medical decision making and plan of care as documented. (Niecy Vaca) - Lab Data Lab Results 03/31/18 03/31/18 03/31/18 Range/Units 21:35 21:35 21:35 WBC 12.1 H (3.8-10.6) k/uL RBC 5.25 (3.80-5.40) m/uL Hgb 14.1 (11.4-16.0) gm/dL Hct 42.3 (34.0-46.0) % MCV 80.6 (80.0-100.0) fL MCH 26.9 (25.0-35.0) pg MCHC 33.3 (31.0-37.0) g/dL RDW 15.2 (11.5-15.5) % Plt Count 264 (150-450) k/uL Neutrophils % 63 % Lymphocytes % 31 % Monocytes % 3 % Eosinophils % 2 % Basophils % 1 % Neutrophils # 7.7 (1.3-7.7) k/uL Lymphocytes # 3.7 (1.0-4.8) k/uL Monocytes # 0.3 (0-1.0) k/uL Eosinophils # 0.2 (0-0.7) k/uL Basophils # 0.1 (0-0.2) k/uL PT 9.6 (9.0-12.0) sec INR 1.0 (<1.2) APTT 23.0 (22.0-30.0) sec Sodium 138 (137-145) mmol/L Potassium 4.0 (3.5-5.1) mmol/L Chloride 100 (98-107) mmol/L Carbon Dioxide 25 (22-30) mmol/L Anion Gap 13 mmol/L BUN 11 (7-17) mg/dL Creatinine 0.28 L (0.52-1.04) mg/dL Est GFR (CKD-EPI)AfAm >90 (>60 ml/min/1.73 sqM) Est GFR (CKD-EPI)NonAf >90 (>60 ml/min/1.73 sqM) Glucose 208 H (74-99) mg/dL Calcium 10.3 H (8.4-10.2) mg/dL Total Bilirubin 0.3 (0.2-1.3) mg/dL AST 48 H (14-36) U/L ALT 76 H (9-52) U/L Alkaline Phosphatase 100 (38-126) U/L Total Protein 7.3 (6.3-8.2) g/dL Albumin 4.3 (3.5-5.0) g/dL Urine Color Urine Appearance (Clear) Urine RBC (0-5) /hpf Ur Squamous Epith Cells (0-4) /hpf Urine Mucus (None) /hpf Urine HCG, Qual (Not Detectd) 10/18/18 10/18/18 Range/Units 22:19 22:19 WBC (3.8-10.6) k/uL RBC (3.80-5.40) m/uL Hgb (11.4-16.0) gm/dL Hct (34.0-46.0) % MCV (80.0-100.0) fL MCH (25.0-35.0) pg MCHC (31.0-37.0) g/dL RDW (11.5-15.5) % Plt Count (150-450) k/uL Neutrophils % % Lymphocytes % % Monocytes % % Eosinophils % % Basophils % % Neutrophils # (1.3-7.7) k/uL Lymphocytes # (1.0-4.8) k/uL Monocytes # (0-1.0) k/uL Eosinophils # (0-0.7) k/uL Basophils # (0-0.2) k/uL PT (9.0-12.0) sec INR (<1.2) APTT (22.0-30.0) sec Sodium (137-145) mmol/L Potassium (3.5-5.1) mmol/L Chloride (98-107) mmol/L Carbon Dioxide (22-30) mmol/L Anion Gap mmol/L BUN (7-17) mg/dL Creatinine (0.52-1.04) mg/dL Est GFR (CKD-EPI)AfAm (>60 ml/min/1.73 sqM) Est GFR (CKD-EPI)NonAf (>60 ml/min/1.73 sqM) Glucose (74-99) mg/dL Calcium (8.4-10.2) mg/dL Total Bilirubin (0.2-1.3) mg/dL AST (14-36) U/L ALT (9-52) U/L Alkaline Phosphatase (38-126) U/L Total Protein (6.3-8.2) g/dL Albumin (3.5-5.0) g/dL Urine Color Red Urine Appearance Turbid H (Clear) Urine RBC >182 H (0-5) /hpf Ur Squamous Epith Cells 26 H (0-4) /hpf Urine Mucus Many H (None) /hpf Urine HCG, Qual Not Detected (Not Detectd) - Radiology Data Transvaginal ultrasound of the pelvis was obtained. Report was reviewed in its entirety. Impression by Dr. Jacobo shows simple right ovarian cyst measuring 3.6 x 2.7 x 3.6 cm. Normal uterus and endometrium. No evidence of right ovarian torsion. Left ovary not seen. (Suzanne Oliver) Disposition Is patient prescribed a controlled substance at d/c from ED?: No Time of Disposition: 00:12 <Suzanne Oliver - Last Filed: 04/01/18 02:57> <Niecy Vaca - Last Filed: 04/01/18 03:08> Clinical Impression: Dysfunctional uterine bleeding, Acute headache, Right ovarian cyst Disposition: HOME SELF-CARE Condition: Good Instructions: Dysfunctional Uterine Bleeding (ED), Ovarian Cyst (ED), Acute Headache (ED) Additional Instructions: Increase fluids. Follow-up with your applications systems engineer for recheck as soon as possible. Return here immediately for any new, worsening, or concerning symptoms. Referrals: Mikel Mauro MD [Primary Care Provider] - 1-2 days Cesilia Pardo DO [Doctor of Osteopathic Medicine] - 1-2 days
[2018-03-31 21:54] LABS: Basophils # (A) 0.1 k/uL (0-0.2); Basophils % (A) 1 %; Eosinophils # (A) 0.2 k/uL (0-0.7); Eosinophils % (A) 2 %; HCT 42.3 % (34.0-46.0); HGB 14.1 gm/dL (11.4-16.0); Lymphocytes # (A) 3.7 k/uL (1.0-4.8); Lymphocytes % (A) 31 %; MCH 26.9 pg (25.0-35.0); MCHC 33.3 g/dL (31.0-37.0); MCV 80.6 fL (80.0-100.0); Mean Platelet Volume 6.9; Monocytes # (A) 0.3 k/uL (0-1.0); Monocytes % (A) 3 %; Neutrophils # (A) 7.7 k/uL (1.3-7.7); Neutrophils % (A) 63 %; Platelet Count 264 k/uL (150-450); RBC 5.25 m/uL (3.80-5.40); RDW 15.2 % (11.5-15.5); WBC 12.1 k/uL (3.8-10.6)
[2018-03-31 22:01] LABS: Prothrombin Time 9.6 sec (9.0-12.0)
[2018-03-31 22:03] LABS: ALT 76 U/L (9-52); AST 48 U/L (14-36); Albumin 4.3 g/dL (3.5-5.0); Alkaline Phosphatase 100 U/L (38-126); Anion Gap 13 mmol/L; Blood Urea Nitrogen 11 mg/dL (7-17); Calcium 10.3 mg/dL (8.4-10.2); Carbon Dioxide 25 mmol/L (22-30); Chloride 100 mmol/L (98-107); Glucose 208 mg/dL (74-99); Sodium 138 mmol/L (137-145); Total Bilirubin 0.3 mg/dL (0.2-1.3); Total Protein 7.3 g/dL (6.3-8.2)
--- NOTE | 2018-03-31 22:50 | US ---
EXAMINATION TYPE: US transvaginal DATE OF EXAM: 03/31/2018 COMPARISON: NONE CLINICAL HISTORY: Pain. Pain and bleeding. TECHNIQUE: Transvaginal (TV. EXAM MEASUREMENTS: Uterus: 8.0 x 3.8 x 3.8 cm Endometrial Stripe: 0.6 cm Right Ovary: 4.3 x 3.0 x 3.9 cm 1. Uterus: Anteverted wnl 2. Endometrium: wnl 3. Right Ovary: Cystic area seen 3.6 x 2.7 x 3.6cm. 4. Left Ovary: Obscured by overlying bowel gas Spectral, color and waveform doppler imaging shows good arterial and venous flow within the right o vary; there is no evidence for ovarian torsion. 5. Bilateral Adnexa: wnl 6. Posterior cul-de-sac: wnl Right ovarian cyst measuring 3.6 x 2.7 x 3.6cm. IMPRESSION: Simple right ovarian cyst. Normal uterus and endometrium. No evidence of right ovarian to rsion. Left ovary not seen.
[2018-03-31 23:15] LABS: Mucus,Urine Many /hpf; Squamous Epithelial Cell,Urine 26 /hpf (0-4)
[2018-03-31 23:21] LABS: Appearance,Urine Turbid (Clear); Color,Urine Red
[2018-03-31 23:22] LABS: RBC,Urine >182 /hpf (0-5)
[2018-04-01 00:20] VITALS: BP 108/70; PULSE 78; RESP 18; TEMP 97.9
== END 2018-04-01 00:19 | disposition home or self-care (01) ==
LOC: EC 20:20
DX: N83.201 Unspecified ovarian cyst, right side (principal); N93.8 Other specified abnormal uterine and vaginal bleeding; R51 Headache; F17.200 Nicotine dependence, unspecified, uncomplicated; Z88.8 Allergy status to other drugs, medicaments and biological substances
CPT/HCPCS: 36415; 80053; 85025; 85610; 85730; 81001; 81025; 93976; 76830; 99284; 96374; 96375 ×2; 96361; J1200; J2765; J1885

== ENCOUNTER 2018-06-14 03:44 | Emergency (ER) | payer OTHER ==
[2018-06-14 03:54] VITALS: TEMP 97.9
[2018-06-14] MEDS ORDERED: SODIUM CHLORIDE 0.9% 1,000 ML IV ONE (05:11)
[2018-06-14] MEDS ORDERED: diphenhydrAMINE 50 MG/ML 1 ML VIAL IVP STA (05:11)
[2018-06-14] MEDS ORDERED: KETOROLAC 30 MG/ML 1 ML VIAL IVP STA (05:11)
[2018-06-14] MEDS ORDERED: METOCLOPRAMIDE 5 MG/ML 2 ML VIAL IVP STA (05:11)
--- NOTE | 2018-06-14 05:14 | ED ---
Headache HPI - General Chief Complaint: Headache Stated Complaint: Headache, jaw pain Time Seen by Provider: 06/14/18 04:46 Mode of arrival: ambulatory Limitations: no limitations - History of Present Illness Initial Comments: Is a 23-year-old female with a history of migraines who presents emergency department for a migraine. She states that she's had it for the last 3 days. She describes it as left sided that is gradually became generalized. She has some associated blurred vision. She states that she also has some left-sided TMJ which she has been dealing with chronically. She is tried Motrin and naproxen at home without any relief. She denies any numbness, tingling, weakness in her extremities. No fevers or chills. Does admit to some nausea but no vomiting. No other acute complaints. - Related Data Home Medications Medication Instructions Recorded Confirmed Ibuprofen [Motrin] 800 mg PO TID PRN 03/31/18 03/31/18 Allergies Allergy/AdvReac Type Severity Reaction Status Date / Time phenol [From Chloraseptic] Allergy Anaphylaxis Verified 06/14/18 03:54 sodium phenolate Allergy Anaphylaxis Verified 06/14/18 03:54 [From Chloraseptic] Review of Systems ROS Statement: Those systems with pertinent positive or pertinent negative responses have been documented in the HPI. ROS Other: All systems not noted in ROS Statement are negative. Past Medical History Past Medical History: Asthma, Diabetes Mellitus, Hypertension Additional Past Medical History / Comment(s): PCOS, migraines, MOOD DISORDER, BORDERLINE PERSONALITY History of Any Multi-Drug Resistant Organisms: None Reported Past Surgical History: Orthopedic Surgery Additional Past Surgical History / Comment(s): right knee surgery Past Psychological History: Anxiety Smoking Status: Current every day smoker Past Alcohol Use History: None Reported Past Drug Use History: None Reported General Exam - General Exam Comments Initial Comments: Constitutional: Awake alert Appears comfortable Head: Normocephalic atraumatic Eyes: no conjunctival injection No scleral icterus EOMI, pupils are 4 mm reactive bilaterally Neck: No JVD Supple Heart: Regular rate rhythm normal S1-S2 no murmurs Lungs: Clear to auscultation bilaterally No wheezing No rales Abdomen: Soft nondistended nontender Extremities: Non edematous DP pulses intact Radial pulses intact Neuro: A&Ox3, 5 out of 5 strength in upper and lower extremities bilaterally, cranial nerves II through XII are grossly intact No focal neurologic deficits Psych: Appropriate mood and affect Limitations: no limitations Course Vital Signs 06/14/18 06/14/18 03:50 07:33 Temperature 97.9 F 97.9 F Pulse Rate 99 70 Respiratory 16 19 Rate Blood Pressure 150/97 112/55 O2 Sat by Pulse 96 98 Oximetry Medical Decision Making - Medical Decision Making Is a 23-year-old female who presents emergency department for migraine. The patient was given a migraine cocktail emergency department with significant relief of her headache. The patient does have chronic TMJ as well will be given ENT for follow-up. She was encouraged to use NSAIDs for headache control at home. I told her that she goes return emergency department has any worsening or changing symptoms. All questions were answered. Disposition Clinical Impression: Migraine Disposition: HOME SELF-CARE Condition: Stable Instructions: Acute Headache (ED) Is patient prescribed a controlled substance at d/c from ED?: No Referrals: Mikel Mauro MD [Primary Care Provider] - 1-2 days Aftab River MD [STAFF PHYSICIAN] - 1-2 days
[2018-06-14 07:44] VITALS: BP 112/55; PULSE 70; RESP 19
== END 2018-06-14 07:34 | disposition home or self-care (01) ==
LOC: EC 03:44
DX: G43.909 Migraine, unspecified, not intractable, without status migrainosus (principal); F17.200 Nicotine dependence, unspecified, uncomplicated; Z88.8 Allergy status to other drugs, medicaments and biological substances
CPT/HCPCS: 99283; 96374; 96375 ×2; 96361; J1200; J2765; J1885

== ENCOUNTER 2018-08-08 17:24 | Emergency (ER) | payer OTHER ==
[2018-08-08] MEDS ORDERED: MORPHINE SULFATE 2 MG/ML SYRINGE IM STA (18:02)
--- NOTE | 2018-08-08 18:49 | ED ---
Recheck HPI - General Chief Complaint: Recheck/Abnormal Lab/Rx Stated Complaint: TEETH PULLED & CONSTANT BLEEDING Time Seen by Provider: 08/08/18 17:50 Source: patient Mode of arrival: ambulatory Limitations: no limitations - History of Present Illness Initial Comments: 23-year-old female presenting for pain and bleeding status post tooth extraction 2 hours earlier. Patient states she had her teeth pulled about 2 hours prior to presentation to the emergency department, she states it was off her lower teeth except the front 7. She states she's had this procedure performed on her upper teeth in the past however the bleeding seemed to persist. She states it has slowed down since she has been waiting in the emergency department. Patient states she was unable to fill her prescription for [place] prior to arrival and didn't take any pain medication she states she cannot tolerate the pain. Patient denies smoking, using straw prior to arrival. Remaining review of systems negative, patient denies any recent fever , chills, shortness of breath, chest pain, back pain, abdominal pain, nausea or vomiting, numbness or tingling, dysuria or hematuria, constipation or diarrhea, headaches or visual changes, or any other complaints. Pt states she presents for pain management and evaluation. - Related Data Home Medications Medication Instructions Recorded Confirmed Ibuprofen [Motrin] 800 mg PO TID PRN 03/31/18 03/31/18 Allergies Allergy/AdvReac Type Severity Reaction Status Date / Time phenol [From Chloraseptic] Allergy Anaphylaxis Verified 06/14/18 03:54 sodium phenolate Allergy Anaphylaxis Verified 06/14/18 03:54 [From Chloraseptic] Review of Systems ROS Statement: Those systems with pertinent positive or pertinent negative responses have been documented in the HPI. ROS Other: All systems not noted in ROS Statement are negative. Past Medical History Past Medical History: Asthma, Diabetes Mellitus, Hypertension Additional Past Medical History / Comment(s): PCOS, migraines, MOOD DISORDER, BORDERLINE PERSONALITY History of Any Multi-Drug Resistant Organisms: None Reported Past Surgical History: Orthopedic Surgery Additional Past Surgical History / Comment(s): right knee surgery tooth extractions Past Psychological History: Anxiety Smoking Status: Current every day smoker Past Alcohol Use History: None Reported Past Drug Use History: Marijuana General Exam - General Exam Comments Initial Comments: General: The patient is awake and alert, appears uncomfortable holding ice pack to face Eye: Pupils are equal, round and reactive to light, extra-ocular movements are intact. No nystagmus. There is normal conjunctiva bilaterally. No signs of icterus. Ears, nose, mouth and throat: There are moist mucous membranes and no oral lesions. All molars of the lower jaw removed, clots in place no heavy active bleeding. No significan soft tissue swelling of face. No swelling below tongue. Suture in place in oral cavity. Neck: The neck is supple, there is no tenderness or JVD. Cardiovascular: There is a regular rate and rhythm. No murmur, rub or gallop is appreciated. Respiratory: Lungs are clear to auscultation, respirations are non-labored, breath sounds are equal. No wheezes, stridor, rales, or rhonchi. Musculoskeletal: Normal ROM, no tenderness. Strength 5/5. Sensation intact. Pulses equal bilaterally 2+. Neurological: A&O x 3. CN II-XII intact, There are no obvious motor or sensory deficits. Coordination appears grossly intact. Speech is normal. Skin: Skin is warm and dry and no rashes or lesions are noted. Psychiatric: Cooperative, appropriate mood & affect, normal judgment. Limitations: no limitations Course Vital Signs 08/08/18 08/08/18 08/08/18 17:38 18:43 18:58 Temperature 98.4 F 98.0 F Pulse Rate 122 H 90 85 Respiratory 24 18 Rate Blood Pressure 175/107 145/95 O2 Sat by Pulse 98 97 Oximetry Medical Decision Making - Medical Decision Making Mouth exam, revealed clot in all extracted teeth, no evidence of dry socket. No significant soft tissue swellling. No heavy active bleeding. Pt given morphine, patient appeared and stated more comfortable. Patient is comfortable discharge at this time I recommended follow-up with dentist tomorrow. Patient states she has her medication filled now and will take it when she gets home. I gave patient instruction on proper care after tooth extraction pt verbalized understanding. I discussed return for hours at length the patient who verbalizes understanding. Patient discharged in stable condition. While I did discuss case with attending provider Dr. Rosales Disposition Clinical Impression: Pain, dental, Post procedure discomfort Disposition: HOME SELF-CARE Condition: Good Instructions (If sedation given, give patient instructions): Toothache (ED), Tooth Extraction (DC) Additional Instructions: Please use previously prescribed medication as discussed. No smoking, no use of straws. Please follow-up with dentist tomorrow. Please return to emergency room if the symptoms increase or worsen or for any other concerns or if clots falls out, fever. Is patient prescribed a controlled substance at d/c from ED?: No Referrals: Mikel Mauro MD [Primary Care Provider] - 1-2 days Time of Disposition: 18:48
[2018-08-08 19:04] VITALS: BP 145/95; PULSE 85; RESP 18; TEMP 98
== END 2018-08-08 19:04 | disposition home or self-care (01) ==
LOC: EC 17:24
DX: K08.89 Other specified disorders of teeth and supporting structures (principal); K08.409 Partial loss of teeth, unspecified cause, unspecified class; F17.200 Nicotine dependence, unspecified, uncomplicated; Z91.048 Other nonmedicinal substance allergy status
CPT/HCPCS: 99283; 96372; J2270

== ENCOUNTER 2019-04-22 21:28 | Emergency (ER) | payer OTHER ==
[2019-04-22 21:40] VITALS: TEMP 98.4
[2019-04-22] MEDS ORDERED: KETOROLAC 30 MG/ML 1 ML VIAL IM STA (21:57)
--- NOTE | 2019-04-22 22:12 | XR ---
EXAMINATION TYPE: XR chest 2V DATE OF EXAM: 04/22/2019 COMPARISON: 09/29/2015 HISTORY: Cough and congestion TECHNIQUE: Frontal and lateral views of the chest are obtained. FINDINGS: Heart and mediastinum are normal. Lungs are clear. Diaphragm is normal. Bony thorax appear s normal. IMPRESSION: Normal chest. No change.
--- NOTE | 2019-04-22 22:27 | ED ---
Back Pain HPI - General Chief Complaint: Back Pain/Injury Stated Complaint: Back pain Time Seen by Provider: 04/22/19 21:50 Source: patient Limitations: no limitations - History of Present Illness Initial Comments: 24-year-old female presented for right lower back pain. Patient states that there are several lower back she began to develop sharp pain after having a week of coughing. Patient states the pain began after a coughing spell. Patient states that she process or an area of her right side of her lower back this reproduces the pain. Patient states any coughing moving twisting increases the pain denies hemoptysis leg swelling history of cancer and DVTs or clotting disorders. Patient denies any chest pain. She denies fevers malaise or flulike symptoms. Patient denies sore throat. Patient states she feels she had a bronchitis. Review systems negative upon arrival patient appears well signs of acute distress. - Related Data Home Medications Medication Instructions Recorded Confirmed Ibuprofen [Motrin] 800 mg PO TID PRN 03/31/18 03/31/18 Previous Rx's Medication Instructions Recorded Benzonatate [Tessalon Perles] 100 mg PO TID PRN 7 Days #21 cap 04/22/19 predniSONE 20 mg PO DAILY 5 Days #5 tab 04/22/19 Allergies Allergy/AdvReac Type Severity Reaction Status Date / Time phenol [From Chloraseptic] Allergy Anaphylaxis Verified 04/22/19 21:40 sodium phenolate Allergy Anaphylaxis Verified 04/22/19 21:40 [From Chloraseptic] Review of Systems ROS Statement: Those systems with pertinent positive or pertinent negative responses have been documented in the HPI. ROS Other: All systems not noted in ROS Statement are negative. Past Medical History Past Medical History: Asthma, Diabetes Mellitus, Hypertension Additional Past Medical History / Comment(s): PCOS, migraines, MOOD DISORDER, BORDERLINE PERSONALITY History of Any Multi-Drug Resistant Organisms: None Reported Past Surgical History: Orthopedic Surgery Additional Past Surgical History / Comment(s): right knee surgery tooth extractions Past Psychological History: Anxiety, Depression Smoking Status: Current every day smoker Past Alcohol Use History: None Reported Past Drug Use History: Marijuana General Exam - General Exam Comments Initial Comments: General: The patient is awake and alert, in no distress, and does not appear acutely ill. Eye: +3 mm pupils are equal, round and reactive to light, extra-ocular movements are intact. No nystagmus. There is normal conjunctiva bilaterally. No signs of icterus. No photophobia Ears, nose, mouth and throat: There are moist mucous membranes and no oral lesions. Oropharynx was not erythematous there is no tonsillar enlargement exudates or lesions. Uvula midline. No anterior cervical lymphadenopathy. Rhinorrhea, clear and bilateral nares. No tripoding, no drooling. Neck: The neck is supple, there is no tenderness or JVD. No nuchal rigidity Cardiovascular: There is a regular rate and rhythm. No murmur, rub or gallop is appreciated. Respiratory: Lungs are clear to auscultation, respirations are non-labored, breath sounds are equal. No wheezes, stridor, rales, or rhonchi. No retractions or abdominal breathing. Gastrointestinal: Soft, non-distended, non-tender abdomen without masses or organomegaly noted. There is no rebound or guarding present. Bowel sounds are unremarkable. Musculoskeletal: Normal inspection with cervical thoracic and lumbar spine. Patient is a point localized area of tenderness on the upper lumbar aspect of spine paravertebral, jumps when area palpated. Normal ROM, no tenderness of the UE and LE. Strength 5/5. Sensation intact. Radial pulses equal bilaterally 2+. Neurological: A&O x 3. CN II-XII intact grossly, There are no obvious motor or sensory deficits. Coordination appears grossly intact. Speech appears normal, no muffling. Skin: Skin is warm and dry and no rashes or lesions are noted. No extremity edema Psychiatric: Cooperative Limitations: no limitations Course Vital Signs 04/22/19 04/22/19 21:38 22:38 Temperature 98.4 F Pulse Rate 100 94 Respiratory 20 18 Rate Blood Pressure 137/86 128/93 O2 Sat by Pulse 98 98 Oximetry Medical Decision Making - Medical Decision Making Well-appearing 24-year-old female presenting for pain and back with cough. Ear is not upper aspect of the lumbar spine paravertebral. Very point localized patient jumps and winces when area is touched. Patient is not diffuse. Patient has had cough for 1 week. Chest x-ray negative for pneumonia. Patient given Toradol emergency department instructed to take ibuprofen outpatient. At this time feel patient has most likely a muscle strain caused by a viral bronchitis. Patient is prescribed steroids. As well as Tessalon Perles for symptomatic relief. Patient is to follow-up primary care provider return parameters were discussed case discussed with him provider the patient was discharged appearing well. Disposition Clinical Impression: Muscle strain, Bronchitis, Cough Disposition: HOME SELF-CARE Condition: Good Instructions (If sedation given, give patient instructions): Muscle Strain (ED), Acute Bronchitis (ED) Additional Instructions: Please use medication as discussed. Please follow-up with family doctor in the next 2 days. Please return to emergency room if the symptoms increase or worsen or for any other concerns. Prescriptions: predniSONE 20 mg PO DAILY 5 Days #5 tab Benzonatate [Tessalon Perles] 100 mg PO TID PRN 7 Days #21 cap PRN Reason: Cough Is patient prescribed a controlled substance at d/c from ED?: No Referrals: Mikel Mauro MD [Primary Care Provider] - 1-2 days Time of Disposition: 22:26
[2019-04-22 22:39] VITALS: BP 128/93; PULSE 94; RESP 18
== END 2019-04-22 22:38 | disposition home or self-care (01) ==
LOC: EC 21:28
DX: J40 Bronchitis, not specified as acute or chronic (principal); S39.012A Strain of muscle, fascia and tendon of lower back, initial encounter; E11.9 Type 2 diabetes mellitus without complications; I10 Essential (primary) hypertension; F17.200 Nicotine dependence, unspecified, uncomplicated; Z88.8 Allergy status to other drugs, medicaments and biological substances; X58.XXXA Exposure to other specified factors, initial encounter
CPT/HCPCS: 71046; 99283; 96372; J1885

== ENCOUNTER → 2019-05-29 | Outpatient (CLI) | payer OTHER ==
[2019-05-29 15:57] LABS: African American GFR (CKD) >90 (>60 ml/min/1.73 sqM); Blood Urea Nitrogen 11 mg/dL (7-17); Non-African American GFR(CKD) >90 (>60 ml/min/1.73 sqM)
--- NOTE | 2019-05-30 09:00 | CT ---
EXAMINATION TYPE: CT abdomen pelvis w con DATE OF EXAM: 05/29/2019 HISTORY: Back/abdominal pain, pain in RT hip area CT DLP: 2053mGycm Automated Exposure Control for Dose Reduction was Utilized. CONTRAST: CT scan of the abdomen and pelvis is performed with IV Contrast, patient injected with 100 mL of Isov ue 300. COMPARISON: Limited abdominal ultrasound and CT abdomen and pelvis June 15, 2017. FINDINGS: LUNG BASES: No significant abnormality is appreciated. LIVER/GB: Stable hepatomegaly with markedly hypodense liver consistent with marked fatty infiltration .. PANCREAS: No significant abnormality is seen. SPLEEN: Persistent splenomegaly measuring 14.8 cm long axis on current study coronal images 73. ADRENALS: No significant abnormality is seen. KIDNEYS: Symmetric cortical medullary uptake with symmetric delayed excretion. This may be product of imaging timing. No hydronephrosis is identified bilaterally. Subcentimeter hypodense focus left kidn ey posteriorly axial image 43 series 7 is too small to further characterize presumed benign BOWEL: Oral contrast does not reach ileal loops in the right abdomen making evaluation distal bowel s lightly suboptimal. No suspicious small or large bowel dilatation. UTERUS/ADNEXA: Anteverted uterus. Ovaries not enlarged. LYMPH NODES: No greater than 1cm abdominal or pelvic lymph nodes are appreciated. OSSEOUS STRUCTURES: Some facet arthropathy lower lumbar spine. OTHER: No significant additional abnormality is seen. IMPRESSION: No significant new or acute finding is seen to account for patient's clinical symptoms. P ersistent hepatosplenomegaly and marked fatty infiltration of liver.
== END | disposition home or self-care (01) ==
LOC: RADCTMAIN 14:58
PROVIDERS: ATTEND Family Medicine
DX: K76.0 Fatty (change of) liver, not elsewhere classified (principal); R16.2 Hepatomegaly with splenomegaly, not elsewhere classified
CPT/HCPCS: 82565; 84520; 74177; 36415; Q9967

== ENCOUNTER → 2019-08-15 | Outpatient (CLI) | payer OTHER ==
[2019-08-15 13:37] LABS: Basophils # (A) 0.1 k/uL (0-0.2); Basophils % (A) 1 %; Eosinophils # (A) 0.2 k/uL (0-0.7); Eosinophils % (A) 2 %; HCT 44.5 % (34.0-46.0); HGB 14.3 gm/dL (11.4-16.0); Lymphocytes # (A) 2.6 k/uL (1.0-4.8); Lymphocytes % (A) 30 %; MCH 25.6 pg (25.0-35.0); MCHC 32.2 g/dL (31.0-37.0); MCV 79.4 fL (80.0-100.0); Mean Platelet Volume 7.4; Monocytes # (A) 0.3 k/uL (0-1.0); Monocytes % (A) 4 %; Neutrophils # (A) 5.3 k/uL (1.3-7.7); Neutrophils % (A) 62 %; Platelet Count 282 k/uL (150-450); RDW 13.7 % (11.5-15.5); WBC 8.6 k/uL (3.8-10.6)
[2019-08-15 13:45] LABS: INR 0.9 (<1.2); Prothrombin Time 9.5 sec (9.0-12.0)
[2019-08-15 18:23] LABS: % Iron Saturation 11.02 (12.00-45.00); ALT 72 U/L (8-44); AST 46 U/L (13-35); Albumin/Globulin Ratio 2.19 (1.60-3.17); Alkaline Phosphatase 99 U/L (41-126); Bilirubin, Conjugated <0.20 mg/dL (0.20-0.40); Chol/HDL Ratio 3.98; Cholesterol 163 mg/dL (0-200); Globulin 2.1 g/dL (1.6-3.3); Iron 42 ug/dL (50-170); LDL Cholesterol,Calculated 78.6 mg/dL (0.0-131.0); Total Bilirubin 0.2 mg/dL (0.3-1.2); Total Iron Binding Capacity 381 ug/dL (228-460); Total Protein 6.7 g/dL (6.2-8.2)
[2019-08-15 18:33] LABS: Ferritin 66.1 ng/mL (10.0-291.0)
[2019-08-15 20:20] LABS: Hepatitis A Antibody IgM Non-Reactive (Non-Reactive); Hepatitis B Core IgM Non-Reactive (Non-Reactive); Hepatitis B Surface Antigen Non-Reactive (Non-Reactive); Hepatitis C IgG Antibody Non-Reactive (Non-Reactive)
[2019-08-16 11:00] LABS: Ceruloplasmin 32.1 mg/dL (20.0-60.0)
== END | disposition home or self-care (01) ==
LOC: LABWHC1 13:07
PROVIDERS: ATTEND Physician Assistant
DX: R74.8 Abnormal levels of other serum enzymes (principal)
CPT/HCPCS: 36415; 80061; 80074; 80076; 82103; 82390; 82728; 83516; 83540; 83550; 85025; 85610; 86038

== ENCOUNTER 2019-08-20 21:24 | Emergency (ER) | payer OTHER ==
[2019-08-20 21:31] VITALS: BP 146/85; PULSE 107; RESP 20; TEMP 98.1
[2019-08-20] MEDS ORDERED: HYDROcodone/APAP 7.5-325MG 1 EACH TAB PO ONE (21:47)
[2019-08-20] MEDS ORDERED: ACET/COD 300 MG/30 MG STARTER PACK 6 TAB BTL PO STA (22:09)
--- NOTE | 2019-08-20 22:09 | XR ---
EXAMINATION TYPE: XR lumbar spine 2 or 3V DATE OF EXAM: 08/20/2019 COMPARISON: 12/08/2011 HISTORY: Back pain TECHNIQUE: 3 views FINDINGS: Lumbar vertebra have normal alignment. Posterior elements are intact. Sacroiliac joints keaton ear normal. IMPRESSION: Normal lumbar spine exam. No change.
--- NOTE | 2019-08-20 22:10 | XR ---
EXAMINATION TYPE: XR Hip Complete RT DATE OF EXAM: 08/20/2019 COMPARISON: NONE HISTORY: Hip pain TECHNIQUE: 2 views FINDINGS: Hip joint space is normal. I see no fracture nor dislocation. Proximal femur is intact. Sac roiliac joint appears normal. IMPRESSION: Negative right hip exam.
[2019-08-20] MEDS ORDERED: CYCLOBENZAPRINE 10MG STARTER 3 TAB BTL PO STA (22:11)
--- NOTE | 2019-08-20 22:12 | ED ---
Lower Extremity Injury HPI - General Chief Complaint: Extremity Injury, Lower Stated Complaint: Hip pain Time Seen by Provider: 08/20/19 21:33 Source: patient Mode of arrival: ambulatory Limitations: no limitations - History of Present Illness Initial Comments: 24-year-old feel presenting for right hip pain. Patient states as above her right hip she developed a pain after stretching across her body to put on a sock. Patient states she felt a pop. She states it was not in her back she states she feels like she popped a muscle. She is tender to palpation she states it hurts when she moves the right leg in the area of the right hip. Patient states she is able to weight-bear. Patient doesn't weakness or sensation deficits the lower extremities denies urinary tension or loss of bowel bladder control. Patient denies any pain in the lumbar thoracic spine. Patient denies any falls or direct trauma. Remaining review of systems negative patient denies any history of IV drug use or cancer. - Related Data Home Medications Medication Instructions Recorded Confirmed Ibuprofen [Motrin] 800 mg PO TID PRN 03/31/18 03/31/18 Previous Rx's Medication Instructions Recorded Benzonatate [Tessalon Perles] 100 mg PO TID PRN 7 Days #21 cap 04/22/19 predniSONE [Deltasone] 20 mg PO DAILY 5 Days #5 tab 04/22/19 Allergies Allergy/AdvReac Type Severity Reaction Status Date / Time phenol [From Chloraseptic] Allergy Anaphylaxis Verified 08/20/19 21:30 sodium phenolate Allergy Anaphylaxis Verified 08/20/19 21:30 [From Chloraseptic] Review of Systems ROS Statement: Those systems with pertinent positive or pertinent negative responses have been documented in the HPI. ROS Other: All systems not noted in ROS Statement are negative. Past Medical History Past Medical History: Asthma, Diabetes Mellitus, Hypertension Additional Past Medical History / Comment(s): PCOS, migraines, MOOD DISORDER, BORDERLINE PERSONALITY History of Any Multi-Drug Resistant Organisms: None Reported Past Surgical History: Orthopedic Surgery Additional Past Surgical History / Comment(s): right knee surgery tooth extractions Past Psychological History: Anxiety, Depression Smoking Status: Current every day smoker Past Alcohol Use History: None Reported Past Drug Use History: Marijuana General Exam - General Exam Comments Initial Comments: General: The patient is awake and alert, in no distress, and does not appear acutely ill. Eye: Pupils are equal, round and reactive to light, extra-ocular movements are intact. No nystagmus. There is normal conjunctiva bilaterally. No signs of icterus. Ears, nose, mouth and throat: There are moist mucous membranes and no oral lesions. Neck: The neck is supple, there is no tenderness or JVD. Cardiovascular: There is a regular rate and rhythm. No murmur, rub or gallop is appreciated. Respiratory: Lungs are clear to auscultation, respirations are non-labored, breath sounds are equal. No wheezes, stridor, rales, or rhonchi. Gastrointestinal: Soft, non-distended, non-tender abdomen without masses or organomegaly noted. There is no rebound or guarding present. Musculoskeletal: Pain to palpation along right lateral hip. No pain midline lumbar or thoracic region. No skin changes. Normal ROM of the LE b/l, no tenderness. Strength 5/5 of the LE b/l. Sensation intact of the LE b/l. DP pulses equal bilaterally 2+. Neurological: A&O x 3. CN II-XII intact grossly, There are no obvious motor or sensory deficits. Coordination appears grossly intact. Speech is normal. Skin: Skin is warm and dry and no rashes or lesions are noted. Psychiatric: Cooperative, appropriate mood & affect, normal judgment. Limitations: no limitations Course Vital Signs 08/20/19 21:29 Temperature 98.1 F Pulse Rate 107 H Respiratory 20 Rate Blood Pressure 146/85 O2 Sat by Pulse 99 Oximetry Medical Decision Making - Medical Decision Making 24-year-old male presenting for right hip pain. Patient is pain of the right lateral hip. Patient has full sensation strength of the lower extremities equal comparison bilaterally including the saddleregion. She denies any signs or cauda equina she denies any lumbar back pain. Patient states occurred while twisting and she felt a pop in the hip. She states this feels like muscular. And states negative for osseous process. Patient 5 muscle relaxant and instructed patient to apply heat and ice all currently. I also discussed the importance of use of Tylenol or NSAIDs for pain control. Patient verbalizes understanding she was given opiates in the emergency department. I discussed the importance of return parameters and primary care follow-up patient was understanding was discharged appearing well Disposition Clinical Impression: Muscle strain, Hip pain Disposition: HOME SELF-CARE Condition: Good Instructions (If sedation given, give patient instructions): Muscle Strain (ED) Additional Instructions: Please use medication as discussed. Please follow-up with family doctor in the next 2 days. Please return to emergency room if the symptoms increase or worsen or for any other concerns. Is patient prescribed a controlled substance at d/c from ED?: No Referrals: Mikel Mauro MD [Primary Care Provider] - 1-2 days Time of Disposition: 22:12
== END 2019-08-20 22:23 | disposition home or self-care (01) ==
LOC: EC 21:24
DX: S76.011A Strain of muscle, fascia and tendon of right hip, initial encounter (principal); E11.9 Type 2 diabetes mellitus without complications; I10 Essential (primary) hypertension; F17.200 Nicotine dependence, unspecified, uncomplicated; Z88.8 Allergy status to other drugs, medicaments and biological substances; X50.9XXA Other and unspecified overexertion or strenuous movements or postures, initial encounter
CPT/HCPCS: 72100; 73502; 99283

== ENCOUNTER → 2019-11-22 | Outpatient (CLI) | payer OTHER ==
--- NOTE | 2019-11-22 12:01 | MR ---
EXAMINATION TYPE: MR brain wo con DATE OF EXAM: 11/22/2019 COMPARISON: 11/28/2015 HISTORY: Migraines TECHNIQUE: T1-weighted sagittal, T2, FLAIR, and diffusion axial, and T2 coronal coronal views of the brain are submitted. FINDINGS: There is no evidence of acute ischemia. The ventricles, basal cisterns, and sulci overlying the conv exities are consistent with the patient's age. There is no mass effect. Cerebellar tonsils are 3 mm below the level the foramen magnum area correlate for Chiari malformation .. Sella turcica has a normal appearance. No cerebellopontine angle mass. Changes of chronic sinusitis are noted. There are multiple focal areas of abnormal signal seen in the white matter which are nonspecific. All measure less than 5 mm. Some of which appear to be artifactual. IMPRESSION: 1. Low-lying cerebellar tonsils. Correlate for Chiari malformation. 2. Minimal nonspecific white matter changes of doubtful significance. This can be seen with migraine headaches or hypertension. Other etiologies including remote microvascular ischemia or demyelinating process not entirely excluded.
== END | disposition home or self-care (01) ==
LOC: RADMRIMAIN 11:14
PROVIDERS: ATTEND Family Medicine
DX: G43.909 Migraine, unspecified, not intractable, without status migrainosus (principal)
CPT/HCPCS: 70551

== ENCOUNTER → 2019-12-14 | Outpatient (CLI) | payer OTHER ==
--- NOTE | 2019-12-14 14:31 | MR ---
EXAMINATION TYPE: MR hip RT wo con DATE OF EXAM: 12/14/2019 COMPARISON: None HISTORY: Pain in right hip Standard multiplanar, multisequence MRI departmental protocol Multiplanar, multisequence images of the right hip were acquired. Diffusion weighted imaging was perf ormed. FINDINGS: Bone marrow signal is homogeneous without evidence for fracture or avascular necrosis. No evidence fo r destructive osseous mass. No soft tissue masses seen. No sizable joint effusion evident. Labrum is intact. No significant degenerative narrowing appreciated. No evidence of femoral acetabular impingement. Tiny ovarian follicles noted bilaterally. No pelvic masses or free fluid. IMPRESSION: No significant abnormality appreciated.
== END | disposition home or self-care (01) ==
LOC: RADMRIMAIN 13:15
PROVIDERS: ATTEND Family Medicine
DX: M25.551 Pain in right hip (principal)

== ENCOUNTER → 2020-02-02 | Outpatient (CLI) | payer OTHER ==
[2020-02-02 15:12] LABS: Basophils # (A) 0.1 k/uL (0-0.2); Basophils % (A) 1 %; Eosinophils # (A) 0.2 k/uL (0-0.7); Eosinophils % (A) 2 %; HCT 45.4 % (34.0-46.0); HGB 14.4 gm/dL (11.4-16.0); Hypochromasia Slight; Lymphocytes # (A) 2.7 k/uL (1.0-4.8); Lymphocytes % (A) 26 %; MCH 25.6 pg (25.0-35.0); MCHC 31.8 g/dL (31.0-37.0); MCV 80.6 fL (80.0-100.0); Mean Platelet Volume 7.6; Monocytes # (A) 0.3 k/uL (0-1.0); Monocytes % (A) 3 %; Neutrophils # (A) 7.2 k/uL (1.3-7.7); Neutrophils % (A) 68 %; Platelet Count 271 k/uL (150-450); RBC 5.63 m/uL (3.80-5.40); RDW 14.5 % (11.5-15.5); WBC 10.6 k/uL (3.8-10.6)
[2020-02-02 19:28] LABS: Albumin 4.5 g/dL (3.80-4.90); Albumin/Globulin Ratio 2.05 (1.60-3.17); Anion Gap 10.9 mmol/L (4.00-12.00); C Reactive Protein 2.6 mg/dL (0.0-0.8); Calcium 9.9 mg/dL (8.7-10.3); Carbon Dioxide 28.1 mmol/L (21.6-31.8); Globulin 2.2 g/dL (1.6-3.3); Non-African American GFR(CKD) 135.5 (60.0-200.0); Potassium 4.4 mmol/L (3.5-5.5); Total Bilirubin 0.3 mg/dL (0.3-1.2); Total Protein 6.7 g/dL (6.2-8.2)
[2020-02-02 23:57] LABS: Erythrocyte Sedimentation Rate 35 mm/Hr (0-20)
== END | disposition home or self-care (01) ==
LOC: LABWHC1 13:43
PROVIDERS: ATTEND Nurse Practitioner Acute Care
DX: E55.9 Vitamin D deficiency, unspecified (principal); E03.9 Hypothyroidism, unspecified; G43.909 Migraine, unspecified, not intractable, without status migrainosus; R53.83 Other fatigue
CPT/HCPCS: 36415; 80053; 82306; 84439; 84443; 84481; 85025; 85652; 86140; 86431; 93005

== ENCOUNTER 2020-04-16 19:59 | Emergency (ER) | payer OTHER ==
[2020-04-16 20:04] VITALS: TEMP 98
[2020-04-16 20:37] LABS: Basophils # (A) 0.1 k/uL (0-0.2); Basophils % (A) 1 %; Eosinophils # (A) 0.3 k/uL (0-0.7); Eosinophils % (A) 3 %; HCT 43.5 % (34.0-46.0); HGB 14.2 gm/dL (11.4-16.0); Lymphocytes # (A) 3.4 k/uL (1.0-4.8); Lymphocytes % (A) 30 %; MCH 26.7 pg (25.0-35.0); MCHC 32.7 g/dL (31.0-37.0); MCV 81.8 fL (80.0-100.0); Mean Platelet Volume 7.3; Monocytes # (A) 0.4 k/uL (0-1.0); Monocytes % (A) 3 %; Neutrophils # (A) 7.1 k/uL (1.3-7.7); Neutrophils % (A) 62 %; Platelet Count 287 k/uL (150-450); RBC 5.31 m/uL (3.80-5.40); RDW 14.4 % (11.5-15.5); WBC 11.3 k/uL (3.8-10.6)
[2020-04-16 20:46] LABS: ALT 57 U/L (4-34); AST 49 U/L (14-36); African American GFR (CKD) >90 (>60 ml/min/1.73 sqM); Albumin 4.2 g/dL (3.5-5.0); Alkaline Phosphatase 102 U/L (38-126); Anion Gap 10 mmol/L; Blood Urea Nitrogen 9 mg/dL (7-17); Calcium 9.5 mg/dL (8.4-10.2); Carbon Dioxide 26 mmol/L (22-30); Chloride 98 mmol/L (98-107); Glucose 352 mg/dL (74-99); Non-African American GFR(CKD) >90 (>60 ml/min/1.73 sqM); Potassium 4.1 mmol/L (3.5-5.1); Sodium 134 mmol/L (137-145); Total Bilirubin 0.3 mg/dL (0.2-1.3); Total Protein 7.1 g/dL (6.3-8.2)
[2020-04-16 21:10] LABS: Amylase <30 U/L (30-110)
[2020-04-16 21:40] LABS: Appearance,Urine Clear (Clear); Bilirubin,Urine Negative (Negative); Blood,Urine Negative (Negative); Color,Urine Yellow; Glucose,Urine (UA) 4+ (Negative); Ketones,Urine 1+ (Negative); Leukocyte Esterase,Urine Negative (Negative); Nitrite,Urine Negative (Negative); PH, Urine 5.5 (5.0-8.0); Protein,Urine Trace (Negative); Urobilinogen,Urine <2.0 mg/dL (<2.0)
[2020-04-16] MEDS ORDERED: INSULIN REGULAR 100 UNIT/ML VIAL SQ ONE (22:19)
[2020-04-16 22:22] VITALS: BP 118/79; PULSE 87; RESP 16
--- NOTE | 2020-04-16 22:25 | US ---
EXAMINATION TYPE: US abdomen limited DATE OF EXAM: 04/16/2020 COMPARISON: CT, US CLINICAL HISTORY: RUQ pain after eating. RUQ pain after eating. EXAM MEASUREMENTS: Liver Length: 22.9 cm Gallbladder Wall: 0.27 cm CBD: 0.48 cm Right Kidney: 14.5 x 6.5 x 6.1 cm Limited due to gas and patient body habitus. Pancreas: Tail obscured by overlying bowel gas. Liver: Appears enlarged and coarse in echotexture. Increased attenuation. Limited. Gallbladder: Limited, appears partially contracted. Evidence for sonographic Loera's sign: No CBD: Appears wnl Right Kidney: Appears enlarged. IMPRESSION: Contracted gallbladder. No gallstones or dilated ducts.
[2020-04-16] MEDS ORDERED: HYDROmorphone 0.5 MG/0.5 ML SYRINGE IVP STA (22:28)
--- NOTE | 2020-04-16 23:19 | CT ---
EXAMINATION TYPE: CT abdomen pelvis w con DATE OF EXAM: 04/16/2020 COMPARISON: 05/29/2019 HISTORY: RLQ pain CT DLP: 2750 mGycm Automated exposure control for dose reduction was used. CONTRAST: Performed with IV Contrast, patient injected with 100 mL of Isovue 300. Lung bases are clear. There is no pleural effusion. There is diffuse fatty infiltration of the liver. Liver is enlarged and measures 25 cm. Gallbladder is contracted. Bile ducts are not dilated. Spleen stomach pancreas appear normal. There is no adrenal mass. Kidneys show satisfactory contrast opacification. There is no hydronephrosi s. There is no retroperitoneal adenopathy. Delayed images show no sign of obstruction. Appendix is posterior and appears normal. There is no inguinal hernia. Lumbar vertebra have normal sp acing and alignment. Bony pelvis is intact. Hip joints are intact. Bladder distends smoothly. Uterus is anteverted. There is no pelvic mass. There is no mesenteric edema. There is no ascites or free air. There is no sign of a bowel obstructio n. IMPRESSION: Hepatomegaly. Fatty infiltration of the liver. No acute abnormality of the abdomen pelvis. No signifi cant change.
--- NOTE | 2020-04-16 23:22 | ED ---
Abdominal Pain HPI - General Chief Complaint: Abdominal Pain Stated Complaint: ABD pain Time Seen by Provider: 04/16/20 20:09 Source: patient Mode of arrival: ambulatory Limitations: no limitations - History of Present Illness Initial Comments: 24-year-old female presenting for abdominal pain diarrhea. Patient states she's had a having right-sided jaw pain after eating. Patient's concerned something is wrong with her gallbladder she denies any fevers chills general malaise. Patient states that she is not vomited in the last 2 weeks however the pain has been present. Patient states she has had consistent diarrhea especially after eating. Patient states it is worse with greasy foods. Patient states sometimes the pain does seem to be present in the right lower quadrant. Patient has no additional complaints. Denies urinary symptoms, vaginal bleeding/discharge or pelvic pain. - Related Data Home Medications Medication Instructions Recorded Confirmed No Known Home Medications 04/16/20 04/16/20 Allergies Allergy/AdvReac Type Severity Reaction Status Date / Time phenol [From Chloraseptic] Allergy Anaphylaxis Verified 04/16/20 21:46 sodium phenolate Allergy Anaphylaxis Verified 04/16/20 21:46 [From Chloraseptic] Review of Systems ROS Statement: Those systems with pertinent positive or pertinent negative responses have been documented in the HPI. ROS Other: All systems not noted in ROS Statement are negative. Past Medical History Past Medical History: Asthma, Diabetes Mellitus, Hypertension Additional Past Medical History / Comment(s): PCOS, migraines, MOOD DISORDER, BORDERLINE PERSONALITY History of Any Multi-Drug Resistant Organisms: None Reported Past Surgical History: Orthopedic Surgery Additional Past Surgical History / Comment(s): right knee surgery tooth extractions Past Psychological History: Anxiety, Depression Smoking Status: Current some day smoker Past Alcohol Use History: None Reported Past Drug Use History: Marijuana General Exam - General Exam Comments Initial Comments: General: The patient is awake and alert, in no distress Eye: Pupils are equal, round and reactive to light, extra-ocular movements are intact. No nystagmus. There is normal conjunctiva bilaterally. No signs of icterus. Ears, nose, mouth and throat: There are moist mucous membranes and no oral lesions. Neck: The neck is supple, there is no tenderness or JVD. Cardiovascular: There is a regular rate and rhythm. No murmur, rub or gallop is appreciated. Respiratory: Lungs are clear to auscultation, respirations are non-labored, breath sounds are equal. No wheezes, stridor, rales, or rhonchi. Gastrointestinal: Soft, non-distended, diffuse ride sided abdominal pain, (-) murphys sign, abdomen without masses or organomegaly noted. There is no rebound or guarding present Musculoskeletal: Normal ROM, no tenderness. Strength 5/5. Sensation intact. Radial pulses equal bilaterally 2+. Neurological: A&O x 3. CN II-XII intact, There are no obvious motor or sensory deficits. Coordination appears grossly intact. Speech is normal. Skin: Skin is warm and dry and no rashes or lesions are noted. Psychiatric: Cooperative, appropriate mood & affect, normal judgment. Limitations: no limitations Course Vital Signs 04/16/20 04/16/20 20:01 22:20 Temperature 98.0 F Pulse Rate 108 H 87 Respiratory 18 16 Rate Blood Pressure 154/100 118/79 O2 Sat by Pulse 98 96 Oximetry Medical Decision Making - Medical Decision Making 24yo presenting right sided pain. CT (-) appendicitis. US contracted GB no infectious signs. Patient has mild leukocytosis. elvated glucose, known DM. Insulin given. Patient is to f/u with pcp for hyperglycemia, change diet and see outpatient pcp/GI/general sugery in regard to suspect gall bladder dysfunction. pt is agreeable to care plan and discharge. discussed case with Dr. Kennedy' - Lab Data Result diagrams: 04/16/20 20:31 04/16/20 20:31 Lab Results 04/16/20 04/16/20 04/16/20 Range/Units 20:31 20:31 21:28 WBC 11.3 H (3.8-10.6) k/uL RBC 5.31 (3.80-5.40) m/uL Hgb 14.2 (11.4-16.0) gm/dL Hct 43.5 (34.0-46.0) % MCV 81.8 (80.0-100.0) fL MCH 26.7 (25.0-35.0) pg MCHC 32.7 (31.0-37.0) g/dL RDW 14.4 (11.5-15.5) % Plt Count 287 (150-450) k/uL Neutrophils % 62 % Lymphocytes % 30 % Monocytes % 3 % Eosinophils % 3 % Basophils % 1 % Neutrophils # 7.1 (1.3-7.7) k/uL Lymphocytes # 3.4 (1.0-4.8) k/uL Monocytes # 0.4 (0-1.0) k/uL Eosinophils # 0.3 (0-0.7) k/uL Basophils # 0.1 (0-0.2) k/uL Sodium 134 L (137-145) mmol/L Potassium 4.1 (3.5-5.1) mmol/L Chloride 98 (98-107) mmol/L Carbon Dioxide 26 (22-30) mmol/L Anion Gap 10 mmol/L BUN 9 (7-17) mg/dL Creatinine 0.35 L (0.52-1.04) mg/dL Est GFR (CKD-EPI)AfAm >90 (>60 ml/min/1.73 sqM) Est GFR (CKD-EPI)NonAf >90 (>60 ml/min/1.73 sqM) Glucose 352 H (74-99) mg/dL Calcium 9.5 (8.4-10.2) mg/dL Total Bilirubin 0.3 (0.2-1.3) mg/dL AST 49 H (14-36) U/L ALT 57 H (4-34) U/L Alkaline Phosphatase 102 (38-126) U/L Total Protein 7.1 (6.3-8.2) g/dL Albumin 4.2 (3.5-5.0) g/dL Amylase <30 L (30-110) U/L Lipase 97 (23-300) U/L Urine Color Yellow Urine Appearance Clear (Clear) Urine pH 5.5 (5.0-8.0) Ur Specific Slater 1.050 H (1.001-1.035) Urine Protein Trace H (Negative) Urine Glucose (UA) 4+ H (Negative) Urine Ketones 1+ H (Negative) Urine Blood Negative (Negative) Urine Nitrite Negative (Negative) Urine Bilirubin Negative (Negative) Urine Urobilinogen <2.0 (<2.0) mg/dL Ur Leukocyte Esterase Negative (Negative) Urine HCG, Qual (Not Detectd) 04/16/20 Range/Units 21:28 WBC (3.8-10.6) k/uL RBC (3.80-5.40) m/uL Hgb (11.4-16.0) gm/dL Hct (34.0-46.0) % MCV (80.0-100.0) fL MCH (25.0-35.0) pg MCHC (31.0-37.0) g/dL RDW (11.5-15.5) % Plt Count (150-450) k/uL Neutrophils % % Lymphocytes % % Monocytes % % Eosinophils % % Basophils % % Neutrophils # (1.3-7.7) k/uL Lymphocytes # (1.0-4.8) k/uL Monocytes # (0-1.0) k/uL Eosinophils # (0-0.7) k/uL Basophils # (0-0.2) k/uL Sodium (137-145) mmol/L Potassium (3.5-5.1) mmol/L Chloride (98-107) mmol/L Carbon Dioxide (22-30) mmol/L Anion Gap mmol/L BUN (7-17) mg/dL Creatinine (0.52-1.04) mg/dL Est GFR (CKD-EPI)AfAm (>60 ml/min/1.73 sqM) Est GFR (CKD-EPI)NonAf (>60 ml/min/1.73 sqM) Glucose (74-99) mg/dL Calcium (8.4-10.2) mg/dL Total Bilirubin (0.2-1.3) mg/dL AST (14-36) U/L ALT (4-34) U/L Alkaline Phosphatase (38-126) U/L Total Protein (6.3-8.2) g/dL Albumin (3.5-5.0) g/dL Amylase (30-110) U/L Lipase (23-300) U/L Urine Color Urine Appearance (Clear) Urine pH (5.0-8.0) Ur Specific Slater (1.001-1.035) Urine Protein (Negative) Urine Glucose (UA) (Negative) Urine Ketones (Negative) Urine Blood (Negative) Urine Nitrite (Negative) Urine Bilirubin (Negative) Urine Urobilinogen (<2.0) mg/dL Ur Leukocyte Esterase (Negative) Urine HCG, Qual Not Detected (Not Detectd) Disposition Clinical Impression: Abdominal pain, Gallbladder contraction Disposition: HOME SELF-CARE Condition: Good Instructions (If sedation given, give patient instructions): Abdominal Pain (ED) Additional Instructions: Please use medication as discussed. Please follow-up with family doctor in the next 2 days, general surgery. Please return to emergency room if the symptoms increase or worsen or for any other concerns. Is patient prescribed a controlled substance at d/c from ED?: No Referrals: Mikel Mauro MD [Primary Care Provider] - 1-2 days Ignacio Licona MD [STAFF PHYSICIAN] - 1-2 days Time of Disposition: 23:22
== END 2020-04-16 23:41 | disposition home or self-care (01) ==
LOC: EC 19:59
DX: K82.0 Obstruction of gallbladder (principal); F17.200 Nicotine dependence, unspecified, uncomplicated; E11.65 Type 2 diabetes mellitus with hyperglycemia; Z88.8 Allergy status to other drugs, medicaments and biological substances
CPT/HCPCS: 36415; 80053; 82150; 83690; 85025; 81003; 81025; 76705; 74177; 99284; 96374; J1170; Q9967

== ENCOUNTER 2020-04-25 22:00 | Emergency (ER) | payer OTHER ==
[2020-04-25 22:09] LABS: Glucose,Whole Blood 350 mg/dL (75-99)
[2020-04-25] MEDS ORDERED: MORPHINE SULFATE 4 MG/ML SYRINGE IV STA (22:18)
[2020-04-25] MEDS ORDERED: SODIUM CHLORIDE 0.9% 1,000 ML IV STA (22:18)
[2020-04-25] MEDS ORDERED: ONDANSETRON 4 MG/2 ML VIAL IVP STA (22:18)
--- NOTE | 2020-04-25 22:31 | ED ---
Abdominal Pain HPI - General Chief Complaint: Abdominal Pain Stated Complaint: Abdominal pain Time Seen by Provider: 04/25/20 22:02 Source: EMS Mode of arrival: EMS - History of Present Illness MD Complaint: abdominal pain Onset/Timin -: hour(s) Location: diffuse Migration to: no migration Severity: severe Quality: aching, burning Consistency: constant Improves With: other ( position) Worsens With: nothing Associated Symptoms: nausea, vomiting - Related Data Previous Rx's Medication Instructions Recorded Dicyclomine [Bentyl] 20 mg PO QID #15 tablet 04/26/20 Famotidine [Pepcid] 20 mg PO BID #14 tablet 04/26/20 metFORMIN HCL [Glucophage] 500 mg PO BID #30 tab 04/26/20 Allergies Allergy/AdvReac Type Severity Reaction Status Date / Time phenol [From Chloraseptic] Allergy Anaphylaxis Verified 04/25/20 22:49 sodium phenolate Allergy Anaphylaxis Verified 04/25/20 22:49 [From Chloraseptic] Review of Systems ROS Statement: Those systems with pertinent positive or pertinent negative responses have been documented in the HPI. ROS Other: All systems not noted in ROS Statement are negative. Constitutional: Denies: fever, chills Respiratory: Denies: cough, dyspnea Cardiovascular: Denies: chest pain, palpitations, syncope Gastrointestinal: Reports: abdominal pain, nausea, diarrhea. Denies: vomiting, melena, hematochezia Genitourinary: Denies: dysuria, hematuria Musculoskeletal: Denies: back pain Skin: Denies: rash Neurological: Denies: headache, weakness, numbness Past Medical History Past Medical History: Asthma, Diabetes Mellitus, Hypertension Additional Past Medical History / Comment(s): PCOS, migraines, MOOD DISORDER, BORDERLINE PERSONALITY History of Any Multi-Drug Resistant Organisms: None Reported Past Surgical History: Orthopedic Surgery Additional Past Surgical History / Comment(s): right knee surgery tooth extractions Past Psychological History: Anxiety, Depression Smoking Status: Current some day smoker Past Alcohol Use History: None Reported Past Drug Use History: Marijuana General Exam General appearance: alert, in no apparent distress Head exam: Present: atraumatic, normocephalic Eye exam: Present: normal appearance. Absent: scleral icterus, conjunctival injection ENT exam: Present: normal oropharynx Neck exam: Present: normal inspection Respiratory exam: Present: normal lung sounds bilaterally. Absent: respiratory distress, wheezes, rales, rhonchi, stridor Cardiovascular Exam: Present: regular rate, normal rhythm, normal heart sounds. Absent: systolic murmur, diastolic murmur, rubs, gallop GI/Abdominal exam: Present: soft. Absent: distended, tenderness, guarding, rebound, rigid, mass, pulsatile mass, hernia Extremities exam: Present: normal inspection, normal capillary refill. Absent: pedal edema, calf tenderness Back exam: Present: normal inspection. Absent: CVA tenderness (R), CVA tenderness (L) Neurological exam: Present: alert Skin exam: Present: warm, dry, intact, normal color. Absent: rash Course Vital Signs 04/25/20 04/26/20 04/26/20 22:04 01:00 03:33 Temperature 98.7 F 97.8 F Pulse Rate 100 83 Respiratory 17 18 16 Rate Blood Pressure 140/95 116/67 O2 Sat by Pulse 100 97 Oximetry Medical Decision Making - Medical Decision Making patient is 25-year-old woman here for abdominal painand hyperglycemia. Patient had labs, started on fluids and giveninsulin. The patient on reevaluation is feeling much better. Given the improvement, imaging will be held as she just had CT weeks previous and preferring limit radiation exposure. We discussed appropriate further care and follow-up as well as return parameters. - Lab Data Result diagrams: 04/25/20 22:32 04/25/20 22:32 Lab Results 04/25/20 04/25/20 04/25/20 Range/Units 22:07 22:19 22:19 WBC (3.8-10.6) k/uL RBC (3.80-5.40) m/uL Hgb (11.4-16.0) gm/dL Hct (34.0-46.0) % MCV (80.0-100.0) fL MCH (25.0-35.0) pg MCHC (31.0-37.0) g/dL RDW (11.5-15.5) % Plt Count (150-450) k/uL MPV Neutrophils % % Lymphocytes % % Monocytes % % Eosinophils % % Basophils % % Neutrophils # (1.3-7.7) k/uL Lymphocytes # (1.0-4.8) k/uL Monocytes # (0-1.0) k/uL Eosinophils # (0-0.7) k/uL Basophils # (0-0.2) k/uL Sodium (137-145) mmol/L Potassium (3.5-5.1) mmol/L Chloride (98-107) mmol/L Carbon Dioxide (22-30) mmol/L Anion Gap mmol/L BUN (7-17) mg/dL Creatinine (0.52-1.04) mg/dL Est GFR (CKD-EPI)AfAm (>60 ml/min/1.73 sqM) Est GFR (CKD-EPI)NonAf (>60 ml/min/1.73 sqM) Glucose (74-99) mg/dL POC Glucose (mg/dL) 350 H (75-99) mg/dL POC Glu [employer] Worker ID Mari Baird Lactic Ac Sepsis Rflx Plasma Lactic Acid Castro (0.7-2.0) mmol/L Calcium (8.4-10.2) mg/dL Total Bilirubin (0.2-1.3) mg/dL AST (14-36) U/L ALT (4-34) U/L Alkaline Phosphatase (38-126) U/L Total Protein (6.3-8.2) g/dL Albumin (3.5-5.0) g/dL Amylase (30-110) U/L Lipase (23-300) U/L Urine Color Light Yellow Urine Appearance Clear (Clear) Urine pH 6.5 (5.0-8.0) Ur Specific Denhoff 1.041 H (1.001-1.035) Urine Protein Trace H (Negative) Urine Glucose (UA) 4+ H (Negative) Urine Ketones 2+ H (Negative) Urine Blood Negative (Negative) Urine Nitrite Negative (Negative) Urine Bilirubin Negative (Negative) Urine Urobilinogen <2.0 (<2.0) mg/dL Ur Leukocyte Esterase Negative (Negative) Urine HCG, Qual Not Detected (Not Detectd) Acetone, Qual (Negative) 04/25/20 04/25/20 04/25/20 Range/Units 22:32 22:32 22:32 WBC 13.4 H (3.8-10.6) k/uL RBC 5.57 H (3.80-5.40) m/uL Hgb 15.0 (11.4-16.0) gm/dL Hct 43.7 (34.0-46.0) % MCV 78.4 L (80.0-100.0) fL MCH 26.9 (25.0-35.0) pg MCHC 34.3 (31.0-37.0) g/dL RDW 14.5 (11.5-15.5) % Plt Count 278 (150-450) k/uL MPV 7.5 Neutrophils % 64 % Lymphocytes % 29 % Monocytes % 3 % Eosinophils % 2 % Basophils % 1 % Neutrophils # 8.6 H (1.3-7.7) k/uL Lymphocytes # 3.9 (1.0-4.8) k/uL Monocytes # 0.5 (0-1.0) k/uL Eosinophils # 0.2 (0-0.7) k/uL Basophils # 0.1 (0-0.2) k/uL Sodium 133 L (137-145) mmol/L Potassium 4.5 (3.5-5.1) mmol/L Chloride 98 (98-107) mmol/L Carbon Dioxide 23 (22-30) mmol/L Anion Gap 12 mmol/L BUN 13 (7-17) mg/dL Creatinine 0.60 (0.52-1.04) mg/dL Est GFR (CKD-EPI)AfAm >90 (>60 ml/min/1.73 sqM) Est GFR (CKD-EPI)NonAf >90 (>60 ml/min/1.73 sqM) Glucose 335 H (74-99) mg/dL POC Glucose (mg/dL) (75-99) mg/dL POC Glu [employer] Worker ID Lactic Ac Sepsis Rflx Plasma Lactic Acid Castro 4.5 H* (0.7-2.0) mmol/L Calcium 9.9 (8.4-10.2) mg/dL Total Bilirubin 0.4 (0.2-1.3) mg/dL AST 39 H (14-36) U/L ALT 47 H (4-34) U/L Alkaline Phosphatase 119 (38-126) U/L Total Protein 7.3 (6.3-8.2) g/dL Albumin 4.4 (3.5-5.0) g/dL Amylase <30 L (30-110) U/L Lipase 127 (23-300) U/L Urine Color Urine Appearance (Clear) Urine pH (5.0-8.0) Ur Specific Denhoff (1.001-1.035) Urine Protein (Negative) Urine Glucose (UA) (Negative) Urine Ketones (Negative) Urine Blood (Negative) Urine Nitrite (Negative) Urine Bilirubin (Negative) Urine Urobilinogen (<2.0) mg/dL Ur Leukocyte Esterase (Negative) Urine HCG, Qual (Not Detectd) Acetone, Qual Negative (Negative) 04/25/20 04/26/20 Range/Units 23:59 02:35 WBC (3.8-10.6) k/uL RBC (3.80-5.40) m/uL Hgb (11.4-16.0) gm/dL Hct (34.0-46.0) % MCV (80.0-100.0) fL MCH (25.0-35.0) pg MCHC (31.0-37.0) g/dL RDW (11.5-15.5) % Plt Count (150-450) k/uL MPV Neutrophils % % Lymphocytes % % Monocytes % % Eosinophils % % Basophils % % Neutrophils # (1.3-7.7) k/uL Lymphocytes # (1.0-4.8) k/uL Monocytes # (0-1.0) k/uL Eosinophils # (0-0.7) k/uL Basophils # (0-0.2) k/uL Sodium (137-145) mmol/L Potassium (3.5-5.1) mmol/L Chloride (98-107) mmol/L Carbon Dioxide (22-30) mmol/L Anion Gap mmol/L BUN (7-17) mg/dL Creatinine (0.52-1.04) mg/dL Est GFR (CKD-EPI)AfAm (>60 ml/min/1.73 sqM) Est GFR (CKD-EPI)NonAf (>60 ml/min/1.73 sqM) Glucose (74-99) mg/dL POC Glucose (mg/dL) (75-99) mg/dL POC Glu [employer] Worker ID Lactic Ac Sepsis Rflx Y Plasma Lactic Acid Castro 1.6 (0.7-2.0) mmol/L Calcium (8.4-10.2) mg/dL Total Bilirubin (0.2-1.3) mg/dL AST (14-36) U/L ALT (4-34) U/L Alkaline Phosphatase (38-126) U/L Total Protein (6.3-8.2) g/dL Albumin (3.5-5.0) g/dL Amylase (30-110) U/L Lipase (23-300) U/L Urine Color Urine Appearance (Clear) Urine pH (5.0-8.0) Ur Specific Denhoff (1.001-1.035) Urine Protein (Negative) Urine Glucose (UA) (Negative) Urine Ketones (Negative) Urine Blood (Negative) Urine Nitrite (Negative) Urine Bilirubin (Negative) Urine Urobilinogen (<2.0) mg/dL Ur Leukocyte Esterase (Negative) Urine HCG, Qual (Not Detectd) Acetone, Qual (Negative) Disposition Clinical Impression: Abdominal pain, Hyperglycemia Disposition: HOME SELF-CARE Condition: Good Instructions (If sedation given, give patient instructions): Abdominal Pain (ED), Diabetic Hyperglycemia (ED) Prescriptions: Dicyclomine [Bentyl] 20 mg PO QID #15 tablet metFORMIN HCL [Glucophage] 500 mg PO BID #30 tab Famotidine [Pepcid] 20 mg PO BID #14 tablet Is patient prescribed a controlled substance at d/c from ED?: No Referrals: Mikel Mauro MD [Primary Care Provider] - 1-2 days
[2020-04-25 22:48] LABS: Basophils # (A) 0.1 k/uL (0-0.2); Basophils % (A) 1 %; Eosinophils # (A) 0.2 k/uL (0-0.7); Eosinophils % (A) 2 %; HCT 43.7 % (34.0-46.0); Lymphocytes # (A) 3.9 k/uL (1.0-4.8); Lymphocytes % (A) 29 %; MCH 26.9 pg (25.0-35.0); MCHC 34.3 g/dL (31.0-37.0); MCV 78.4 fL (80.0-100.0); Mean Platelet Volume 7.5; Monocytes # (A) 0.5 k/uL (0-1.0); Monocytes % (A) 3 %; Neutrophils # (A) 8.6 k/uL (1.3-7.7); Neutrophils % (A) 64 %; Platelet Count 278 k/uL (150-450); RBC 5.57 m/uL (3.80-5.40); RDW 14.5 % (11.5-15.5); WBC 13.4 k/uL (3.8-10.6)
[2020-04-25] MEDS ORDERED: HYDROmorphone 0.5 MG/0.5 ML SYRINGE IVP STA (22:50)
[2020-04-25 22:56] LABS: ALT 47 U/L (4-34); AST 39 U/L (14-36); African American GFR (CKD) >90 (>60 ml/min/1.73 sqM); Albumin 4.4 g/dL (3.5-5.0); Alkaline Phosphatase 119 U/L (38-126); Amylase <30 U/L (30-110); Anion Gap 12 mmol/L; Blood Urea Nitrogen 13 mg/dL (7-17); Calcium 9.9 mg/dL (8.4-10.2); Carbon Dioxide 23 mmol/L (22-30); Chloride 98 mmol/L (98-107); Glucose 335 mg/dL (74-99); Lipase 127 U/L (23-300); Non-African American GFR(CKD) >90 (>60 ml/min/1.73 sqM); Potassium 4.5 mmol/L (3.5-5.1); Sodium 133 mmol/L (137-145); Total Bilirubin 0.4 mg/dL (0.2-1.3); Total Protein 7.3 g/dL (6.3-8.2)
[2020-04-26] MEDS ORDERED: SODIUM CHLORIDE 0.9% 1,000 ML IV ONE (00:07)
[2020-04-26 00:22] LABS: Appearance,Urine Clear (Clear); Bilirubin,Urine Negative (Negative); Blood,Urine Negative (Negative); Color,Urine Light Yellow; Glucose,Urine (UA) 4+ (Negative); Leukocyte Esterase,Urine Negative (Negative); Nitrite,Urine Negative (Negative); PH, Urine 6.5 (5.0-8.0); Protein,Urine Trace (Negative); Specific Gravity,Urine 1.041 (1.001-1.035); Urobilinogen,Urine <2.0 mg/dL (<2.0)
[2020-04-26 00:38] LABS: Ketones,Urine 2+ (Negative)
[2020-04-26] MEDS ORDERED: MAG HYDROX/AL HYDROX/SIMETH 30 ML, HYOSCYAMINE ELIXIR 10 ML, LIDOCAINE VISCOUS 2% 10 ML PO STA ×3 (00:41)
[2020-04-26 03:35] VITALS: BP 116/67; PULSE 83; RESP 16; TEMP 97.8
== END 2020-04-26 03:35 | disposition home or self-care (01) ==
LOC: EC 22:00
DX: E11.65 Type 2 diabetes mellitus with hyperglycemia (principal); R10.9 Unspecified abdominal pain; F17.200 Nicotine dependence, unspecified, uncomplicated; Z88.8 Allergy status to other drugs, medicaments and biological substances; Z79.84 Long term (current) use of oral hypoglycemic drugs
CPT/HCPCS: 36415 ×2; 80053; 82150; 82009; 83605 ×2; 83690; 85025; 81003; 81025; 99284; 96374; 96375 ×2; 96361 ×2; J2270; J2405; J1170

== ENCOUNTER → 2020-05-07 | Outpatient (CLI) | payer OTHER | END | disposition home or self-care (01) | LOC: LABWHC1 12:32 | PROVIDERS: ATTEND Family Medicine | DX: E11.65 Type 2 diabetes mellitus with hyperglycemia (principal) | CPT/HCPCS: 36415; 82947 ==

== ENCOUNTER 2020-05-08 07:31 | Day surgery (SDC) | payer OTHER ==
[2020-05-03 14:52] VITALS: BMI 45.1
[~2020-05-08 07:31] MED LIST: ACETAMINOPHEN TAB 500 MG TAB PO PRN; HEPARIN SODIUM,PORCINE 5,000 UNIT/ML 1 ML VIAL SQ PRN; HYDROmorphone 0.5 MG/0.5 ML SYRINGE IVP PRN; LACTATED RINGERS 1,000 ML IV SCH; MIDAZOLAM 2 MG/2 ML VIAL IV PRN; ONDANSETRON 4 MG/2 ML VIAL IVP PRN; ceFAZolin 3 GM in SODIUM CHLORIDE 0.9% 100 ML IVPB PRN
[2020-05-08] MEDS ORDERED: ONDANSETRON 4 MG/2 ML VIAL ONE (08:00)
[2020-05-08] MEDS ORDERED: LIDOCAINE 1% (10MG/ML) FOR IV START INTRADERMA ONE (08:10)
[2020-05-08 08:14] LABS: Glucose,Whole Blood 192 mg/dL (75-99)
[2020-05-08] MEDS ORDERED: BUPIVACAINE (PF) 0.25% 30 ML VIAL SQ ONE (09:01)
[2020-05-08] MEDS ORDERED: GLYCOPYRROLATE 0.2 MG/ML 2 ML VIAL ONE (09:03)
[2020-05-08] MEDS ORDERED: NEOSTIGMINE 1 MG/ML 10 ML VIAL ONE (09:03)
[2020-05-08] MEDS ORDERED: KETOROLAC 15 MG/ML 1 ML VIAL ONE (09:03)
[2020-05-08] MEDS ORDERED: ROCURONIUM 10 MG/ML (10 ML VIAL) IV ONE (09:03)
[2020-05-08] MEDS ORDERED: MIDAZOLAM 2 MG/2 ML VIAL ONE (09:03)
[2020-05-08] MEDS ORDERED: fentaNYL (PF) 50 MCG/ML 2 ML AMP ONE (09:03)
[2020-05-08] MEDS ORDERED: HYDROmorphone (PF) 1 MG/ML ONE (09:03)
[2020-05-08] MEDS ORDERED: LIDOCAINE 1% INJ 10MG/ML (20 ML MDV) ONE (09:03)
[2020-05-08] MEDS ORDERED: PROPOFOL 10 MG/ML 20 ML VIAL IV ONE (09:03)
[2020-05-08] MEDS ORDERED: SUCCINYLCHOLINE CHLORIDE VIAL 200 MG/10 ML VIAL IV ONE (09:03)
--- NOTE | 2020-05-08 09:04 | P.GSHP ---
History of Present Illness H&P Date: 05/08/20 Chief Complaint: Right upper quadrant pain Is a 25-year-old female who presents today for laparoscopic cholecystectomy. Patient had complaints of right upper quadrant pain. The pain is worsened with increasing fried foods. Past Medical History Past Medical History: Asthma, Diabetes Mellitus, Hypertension Additional Past Medical History / Comment(s): nausea and abdominal pain,freq diarrhea,hx PCOS, migraines History of Any Multi-Drug Resistant Organisms: None Reported Past Surgical History: Orthopedic Surgery Additional Past Surgical History / Comment(s): right knee surgery, tooth extractions Past Anesthesia/Blood Transfusion Reactions: No Reported Reaction Additional Past Anesthesia/Blood Transfusion Reaction / Comment(s): no hx blood transfusion Smoking Status: Current every day smoker - Past Family History Mother Family Medical History: Cancer Medications and Allergies Home Medications Medication Instructions Recorded Confirmed Type Famotidine [Pepcid] 20 mg PO BID #14 tablet 04/26/20 05/03/20 Rx metFORMIN HCL [Glucophage] 500 mg PO BID #30 tab 04/26/20 05/03/20 Rx Topiramate 50 mg PO BID 05/03/20 05/03/20 History amLODIPine BESYLATE 5 mg PO QAM 05/03/20 05/03/20 History Empagliflozin/Linagliptin 1 each PO QAM 05/07/20 05/07/20 History [Glyxambi 10 mg-5 mg Tablet] Insulin Glargine [Lantus] 48 unit SQ QAM 05/07/20 05/07/20 History Allergies Allergy/AdvReac Type Severity Reaction Status Date / Time phenol [From Chloraseptic] Allergy Anaphylaxis Verified 05/08/20 07:50 sodium phenolate Allergy Anaphylaxis Verified 05/08/20 07:50 [From Chloraseptic] Surgical - Exam Vital Signs Temp Pulse Resp BP Pulse Ox 97.9 F 87 18 120/73 96 05/08/20 07:55 05/08/20 07:55 05/08/20 07:55 05/08/20 07:55 05/08/20 07:55 - General well developed, well nourished, no distress - Eyes PERRL - ENT normal pinna - Neck no masses - Respiratory normal expansion - Cardiovascular Rhythm: regular - Abdomen Abdomen: soft, non tender Results - Labs Abnormal Lab Results - Last 24 Hours (Table) 11/25/20 Range/Units 08:08 POC Glucose (mg/dL) 192 H (75-99) mg/dL Assessment and Plan Assessment: Right quadrant pain We'll perform laparoscopic cholecystectomy
[2020-05-08] MEDS ORDERED: LACTATED RINGERS 1,000 ML IV ONE (09:55)
[2020-05-08] MEDS: fentaNYL (PF) 50 MCG/ML 2 ML AMP IV PRN ×2 (10:04→10:20)
--- NOTE | 2020-05-08 10:10 | P.OP ---
Date of Procedure: 05/08/20 Preoperative Diagnosis: Cholecystitis Postoperative Diagnosis: Cholecystitis Procedure(s) Performed: Laparoscopic cholecystectomy Anesthesia: LEONIE Surgeon: Ignacio Licona Pathology: other (Gallbladder) Condition: stable Disposition: PACU Description of Procedure: The patient was placed on the operating table. The patient received a general endotracheal tube anesthesia. The patients abdomen was prepped and draped in the usual sterile fashion. Through an infraumbilical stab incision, the fascia of the anterior abdominal wall was grasped with a pair of Kochers and then the Veress needle was placed in the peritoneal cavity. Position of the Veress needle was confirmed with positive drop test. The abdomen was then insufflated. After adequate insufflation, the 10 mm trocar was placed in the peritoneal cavity. Following this the laparoscope was placed in the peritoneal cavity. The patient was placed in the head-up, right side up position and then a 5 mm trocar was placed in the right lateral and right subcostal position under direct visualization. A 8 mm trocar was placed in the epigastric position. The gallbladder was grasped in the fundus and infundibulum. Traction on the gallbladder was placed in the lateral and the cephalad positions. The triangle of Calot was visualized.. The cystic duct was bluntly dissected until the union of the cystic duct and common bile duct was seen. A critical view of safety was achieved. The cystic duct was then divided and sealed with the Harmonic scissors. A PDS Endoloop was then placed throughout the cystic duct stump. The cystic artery divided and sealed with the Harmonic scissors. The gallbladder was then removed from the liver bed using Harmonic scissors. The gallbladder was then extracted through the epigastric port site. Operative field was checked for any bleeding spots and Harmonic scissors was used to coagulate the liver bed. The abdomen was irrigated. The trocars were removed. The skin was closed using interrupted 3-0 Vicryl suture. Dermabond dressing were applied. The patient tolerated the procedure well.
[2020-05-08 10:12] VITALS: RESP 16; TEMP 97.7
[2020-05-08 10:31] LABS: Glucose,Whole Blood 185 mg/dL (75-99)
[2020-05-08] MEDS ORDERED: ONDANSETRON 4 MG/2 ML VIAL IVP ONE (10:36)
[2020-05-08 11:42] VITALS: BP 94/61; PULSE 57
== END 2020-05-08 12:20 | disposition home or self-care (01) ==
LOC: OR 07:31
PROVIDERS: ATTEND Surgery
DX: K81.1 Chronic cholecystitis (principal); I10 Essential (primary) hypertension; F17.210 Nicotine dependence, cigarettes, uncomplicated; E11.9 Type 2 diabetes mellitus without complications; E66.01 Morbid (severe) obesity due to excess calories; J45.909 Unspecified asthma, uncomplicated; G43.909 Migraine, unspecified, not intractable, without status migrainosus; Z88.8 Allergy status to other drugs, medicaments and biological substances; Z79.4 Long term (current) use of insulin; Z79.899 Other long term (current) drug therapy; Z98.890 Other specified postprocedural states; Z68.41 Body mass index [BMI] 40.0-44.9, adult
CPT/HCPCS: 47562; 88304; J2250; J0330; J1644; J2710; J0690; J2405; J2001; J3010; J1170; J1885; J2704

== ENCOUNTER 2020-07-10 10:59 | Emergency (ER) | payer OTHER ==
[2020-07-10 11:08] VITALS: RESP 18
[2020-07-10] MEDS ORDERED: SODIUM CHLORIDE 0.9% 1,000 ML IV STA (11:19)
--- NOTE | 2020-07-10 11:55 | ED ---
Abdominal Pain HPI - General Chief Complaint: Abdominal Pain Stated Complaint: abd pain Time Seen by Provider: 07/10/20 11:09 Source: patient, RN notes reviewed Mode of arrival: ambulatory Limitations: no limitations - History of Present Illness Initial Comments: Patient is a 25-year-old female that presented to the emergency department complaining of abdominal pain superior superior to her belly button. She did note that she is status post cholecystectomy April 2020. She noted an unremarkable and uncomplicated recovery. She noted that since about 7 PM last night she has had diarrhea, which she notes isn't completely abnormal since her cholecystectomy. Her main concern was that her stomach just above her belly button is tender to the touch, even to light touch such as shirt brushing across it. She also noted just to make sure he was aware that whenever she is on her period. She informed her primary care DEVELOPMENT WRITER, but has not gotten any answers. He said the pain only comes on when pressure is applied, but other than that she is fine. She appeared to be in no distress. Denies any past pregnancies. She denied any nausea, vomiting, constipation, chest pain, shortness of breath, fever, fatigue, chills, night sweats - Related Data Home Medications Medication Instructions Recorded Confirmed Topiramate 50 mg PO BID 05/03/20 07/10/20 amLODIPine BESYLATE 5 mg PO DAILY 05/03/20 07/10/20 Empagliflozin/Linagliptin 1 tab PO DAILY 05/07/20 07/10/20 [Glyxambi 10 mg-5 mg Tablet] Insulin Glargine,Hum.rec.anlog 48 unit SQ DAILY 07/10/20 07/10/20 [Lantus Solostar] Pregabalin [Lyrica] 150 mg PO BID 07/10/20 07/10/20 Previous Rx's Medication Instructions Recorded metFORMIN HCL [Glucophage] 500 mg PO BID #30 tab 04/26/20 Allergies Allergy/AdvReac Type Severity Reaction Status Date / Time phenol [From Chloraseptic] Allergy Anaphylaxis Verified 07/10/20 11:42 sodium phenolate Allergy Anaphylaxis Verified 07/10/20 11:42 [From Chloraseptic] Review of Systems ROS Statement: Those systems with pertinent positive or pertinent negative responses have been documented in the HPI. ROS Other: All systems not noted in ROS Statement are negative. Past Medical History Past Medical History: Asthma, Diabetes Mellitus, Hypertension Additional Past Medical History / Comment(s): freq diarrhea,hx PCOS, migraines History of Any Multi-Drug Resistant Organisms: None Reported Past Surgical History: Cholecystectomy, Orthopedic Surgery Additional Past Surgical History / Comment(s): right knee surgery, tooth extractions Past Anesthesia/Blood Transfusion Reactions: No Reported Reaction Additional Past Anesthesia/Blood Transfusion Reaction / Comment(s): no hx blood transfusion Past Psychological History: Anxiety, Depression Smoking Status: Current every day smoker Past Alcohol Use History: None Reported Past Drug Use History: None Reported - Past Family History Mother Family Medical History: Cancer General Exam Limitations: no limitations General appearance: alert, in no apparent distress Head exam: Present: atraumatic, normocephalic, normal inspection Eye exam: Present: normal appearance, PERRL, EOMI. Absent: scleral icterus, conjunctival injection, periorbital swelling ENT exam: Present: normal exam, mucous membranes moist Neck exam: Present: normal inspection. Absent: tenderness, meningismus, lymphadenopathy Respiratory exam: Present: normal lung sounds bilaterally. Absent: respiratory distress, wheezes, rales, rhonchi, stridor Cardiovascular Exam: Present: regular rate, normal rhythm, normal heart sounds. Absent: systolic murmur, diastolic murmur, rubs, gallop, clicks GI/Abdominal exam: Present: soft, tenderness (Just superior to the naval to light touch.), hypoactive bowel sounds Extremities exam: Present: normal inspection, full ROM, normal capillary refill. Absent: tenderness, pedal edema, joint swelling, calf tenderness Neurological exam: Present: alert, oriented X3, CN II-XII intact Psychiatric exam: Present: normal affect, normal mood Skin exam: Present: warm, dry, intact, normal color. Absent: rash Course Vital Signs 07/10/20 11:04 Temperature 98.3 F Pulse Rate 77 Respiratory 18 Rate Blood Pressure 129/82 O2 Sat by Pulse 98 Oximetry Medical Decision Making - Medical Decision Making 25-year-old female complaining of abdominal pain. Patient tolerated lab draws x-ray well. Case discussed with Dr. Harris. - Lab Data Result diagrams: 07/10/20 11:32 07/10/20 11:32 Lab Results 07/10/20 07/10/20 07/10/20 Range/Units 11:32 11:32 11:32 WBC 13.2 H (3.8-10.6) k/uL RBC 5.62 H (3.80-5.40) m/uL Hgb 14.2 (11.4-16.0) gm/dL Hct 42.5 (34.0-46.0) % MCV 75.7 L (80.0-100.0) fL MCH 25.2 (25.0-35.0) pg MCHC 33.3 (31.0-37.0) g/dL RDW 14.4 (11.5-15.5) % Plt Count 300 (150-450) k/uL MPV 7.1 Neutrophils % 75 % Lymphocytes % 20 % Monocytes % 3 % Eosinophils % 2 % Basophils % 1 % Neutrophils # 9.9 H (1.3-7.7) k/uL Lymphocytes # 2.6 (1.0-4.8) k/uL Monocytes # 0.4 (0-1.0) k/uL Eosinophils # 0.2 (0-0.7) k/uL Basophils # 0.1 (0-0.2) k/uL Microcytosis Slight Sodium (137-145) mmol/L Potassium (3.5-5.1) mmol/L Chloride (98-107) mmol/L Carbon Dioxide (22-30) mmol/L Anion Gap mmol/L BUN (7-17) mg/dL Creatinine (0.52-1.04) mg/dL Est GFR (CKD-EPI)AfAm (>60 ml/min/1.73 sqM) Est GFR (CKD-EPI)NonAf (>60 ml/min/1.73 sqM) Glucose (74-99) mg/dL Calcium (8.4-10.2) mg/dL Total Bilirubin (0.2-1.3) mg/dL AST (14-36) U/L ALT (4-34) U/L Alkaline Phosphatase (38-126) U/L Total Protein (6.3-8.2) g/dL Albumin (3.5-5.0) g/dL Amylase (30-110) U/L Lipase (23-300) U/L Urine Color Light Yellow Urine Appearance Clear (Clear) Urine pH 7.5 (5.0-8.0) Ur Specific [place] 1.035 (1.001-1.035) Urine Protein Negative (Negative) Urine Glucose (UA) 4+ H (Negative) Urine Ketones 1+ H (Negative) Urine Blood Negative (Negative) Urine Nitrite Negative (Negative) Urine Bilirubin Negative (Negative) Urine Urobilinogen <2.0 (<2.0) mg/dL Ur Leukocyte Esterase Negative (Negative) Urine HCG, Qual Not Detected (Not Detectd) 07/10/20 Range/Units 11:32 WBC (3.8-10.6) k/uL RBC (3.80-5.40) m/uL Hgb (11.4-16.0) gm/dL Hct (34.0-46.0) % MCV (80.0-100.0) fL MCH (25.0-35.0) pg MCHC (31.0-37.0) g/dL RDW (11.5-15.5) % Plt Count (150-450) k/uL MPV Neutrophils % % Lymphocytes % % Monocytes % % Eosinophils % % Basophils % % Neutrophils # (1.3-7.7) k/uL Lymphocytes # (1.0-4.8) k/uL Monocytes # (0-1.0) k/uL Eosinophils # (0-0.7) k/uL Basophils # (0-0.2) k/uL Microcytosis Sodium 141 (137-145) mmol/L Potassium 4.0 (3.5-5.1) mmol/L Chloride 105 (98-107) mmol/L Carbon Dioxide 23 (22-30) mmol/L Anion Gap 13 mmol/L BUN 10 (7-17) mg/dL Creatinine 0.43 L (0.52-1.04) mg/dL Est GFR (CKD-EPI)AfAm >90 (>60 ml/min/1.73 sqM) Est GFR (CKD-EPI)NonAf >90 (>60 ml/min/1.73 sqM) Glucose 111 H (74-99) mg/dL Calcium 10.0 (8.4-10.2) mg/dL Total Bilirubin 0.5 (0.2-1.3) mg/dL AST 27 (14-36) U/L ALT 34 (4-34) U/L Alkaline Phosphatase 74 (38-126) U/L Total Protein 7.4 (6.3-8.2) g/dL Albumin 4.4 (3.5-5.0) g/dL Amylase <30 L (30-110) U/L Lipase 58 (23-300) U/L Urine Color Urine Appearance (Clear) Urine pH (5.0-8.0) Ur Specific [place] (1.001-1.035) Urine Protein (Negative) Urine Glucose (UA) (Negative) Urine Ketones (Negative) Urine Blood (Negative) Urine Nitrite (Negative) Urine Bilirubin (Negative) Urine Urobilinogen (<2.0) mg/dL Ur Leukocyte Esterase (Negative) Urine HCG, Qual (Not Detectd) - Radiology Data Radiology results: report reviewed, image reviewed KUB: Overall nonspecific but favor nonobstructive bowel gas pattern. Findings: Some paucity of bowel gas. Gas seen in nondistended stomach. Some patchy gas and nondistended bowel loops in the pelvis. Stable mild sp lenomegaly. Stable asymmetric prominence or enlargement of left kidney. No pneumoperitoneum. No suspicious calcification. The lung bases are clear and osseous structures are intact. Compared to CT of abdomen and pelvis 04/16/2020 Disposition Clinical Impression: Acute abdomen, Diarrhea Disposition: HOME SELF-CARE Condition: Stable Instructions (If sedation given, give patient instructions): Acute Diarrhea (ED) Additional Instructions: Please return to the Emergency Department if symptoms worsen or any other concerns. Follow-up with PCP 1-2 days. Monitor symptoms while transitioning diet. Is patient prescribed a controlled substance at d/c from ED?: No Referrals: Jass Mauro MD [Primary Care Provider] - 1-2 days Decision Time: 12:36
[2020-07-10 11:58] LABS: Appearance,Urine Clear (Clear); Bilirubin,Urine Negative (Negative); Blood,Urine Negative (Negative); Color,Urine Light Yellow; Glucose,Urine (UA) 4+ (Negative); Ketones,Urine 1+ (Negative); Leukocyte Esterase,Urine Negative (Negative); Nitrite,Urine Negative (Negative); PH, Urine 7.5 (5.0-8.0); Protein,Urine Negative (Negative); Specific Gravity,Urine 1.035 (1.001-1.035); Urobilinogen,Urine <2.0 mg/dL (<2.0)
[2020-07-10 11:59] LABS: Basophils # (A) 0.1 k/uL (0-0.2); Basophils % (A) 1 %; Eosinophils # (A) 0.2 k/uL (0-0.7); Eosinophils % (A) 2 %; HCT 42.5 % (34.0-46.0); HGB 14.2 gm/dL (11.4-16.0); Lymphocytes # (A) 2.6 k/uL (1.0-4.8); Lymphocytes % (A) 20 %; MCH 25.2 pg (25.0-35.0); MCHC 33.3 g/dL (31.0-37.0); MCV 75.7 fL (80.0-100.0); Mean Platelet Volume 7.1; Microcytosis Slight; Monocytes # (A) 0.4 k/uL (0-1.0); Monocytes % (A) 3 %; Neutrophils # (A) 9.9 k/uL (1.3-7.7); Neutrophils % (A) 75 %; Platelet Count 300 k/uL (150-450); RBC 5.62 m/uL (3.80-5.40); RDW 14.4 % (11.5-15.5); WBC 13.2 k/uL (3.8-10.6)
[2020-07-10 12:10] LABS: ALT 34 U/L (4-34); AST 27 U/L (14-36); African American GFR (CKD) >90 (>60 ml/min/1.73 sqM); Albumin 4.4 g/dL (3.5-5.0); Alkaline Phosphatase 74 U/L (38-126); Amylase <30 U/L (30-110); Anion Gap 13 mmol/L; Blood Urea Nitrogen 10 mg/dL (7-17); Carbon Dioxide 23 mmol/L (22-30); Chloride 105 mmol/L (98-107); Glucose 111 mg/dL (74-99); Lipase 58 U/L (23-300); Non-African American GFR(CKD) >90 (>60 ml/min/1.73 sqM); Sodium 141 mmol/L (137-145); Total Bilirubin 0.5 mg/dL (0.2-1.3); Total Protein 7.4 g/dL (6.3-8.2)
--- NOTE | 2020-07-10 12:20 | XR ---
EXAMINATION TYPE: XR KUB DATE OF EXAM: 07/10/2020 12:12 PM CLINICAL HISTORY: History of gallstones with abdominal pain. TECHNIQUE: Two Upright KUB images of the abdomen are obtained. COMPARISON: CT abdomen and pelvis April 16, 2020. FINDINGS: Some paucity of bowel gas. Gas seen in nondistended stomach. Some patchy gas in nondistende d bowel loops in the pelvis. Stable mild splenomegaly. Stable asymmetric prominence or enlargement of left kidney. No pneumoperitoneum. No suspicious calcification. The lung bases are clear and the osse ous structures are intact. IMPRESSION: Overall nonspecific but favor nonobstructive bowel gas pattern.
[2020-07-10 13:01] VITALS: BP 103/55; PULSE 65; TEMP 98.1
== END 2020-07-10 12:59 | disposition home or self-care (01) ==
LOC: EC 10:59
DX: R10.0 Acute abdomen (principal); E11.9 Type 2 diabetes mellitus without complications; I10 Essential (primary) hypertension; F17.200 Nicotine dependence, unspecified, uncomplicated; Z79.899 Other long term (current) drug therapy; Z79.4 Long term (current) use of insulin; Z91.048 Other nonmedicinal substance allergy status; Z90.49 Acquired absence of other specified parts of digestive tract
CPT/HCPCS: 36415; 74018; 80053; 81003; 81025; 82150; 83690; 85025; 96360; 99284

== ENCOUNTER 2021-08-04 19:21 | Emergency (ER) | payer OTHER ==
[2021-08-04 20:02] VITALS: TEMP 97.8
[2021-08-04 20:32] LABS: Appearance,Urine Cloudy (Clear); Bacteria,Urine Rare /hpf; Bilirubin,Urine Negative (Negative); Blood,Urine Negative (Negative); Color,Urine Light Yellow; Glucose,Urine (UA) 4+ (Negative); Ketones,Urine Negative (Negative); Leukocyte Esterase,Urine Negative (Negative); Nitrite,Urine Negative (Negative); Protein,Urine Negative (Negative); RBC,Urine 4 /hpf (0-5); Specific Gravity,Urine 1.034 (1.001-1.035); Squamous Epithelial Cell,Urine 9 /hpf (0-4); Urobilinogen,Urine <2.0 mg/dL (<2.0); WBC,Urine 1 /hpf (0-5)
[2021-08-04] MEDS ORDERED: KETOROLAC 15 MG/ML 1 ML VIAL IM STA (21:18)
[2021-08-04] MEDS ORDERED: MORPHINE SULFATE 4 MG/ML SYRINGE IM STA (21:18)
[2021-08-04] MEDS ORDERED: ORPHENADRINE 30 MG/ML 2 ML VIAL IM STA (21:20)
--- NOTE | 2021-08-04 21:25 | ED ---
Back Pain HPI - General Chief Complaint: Back Pain/Injury Stated Complaint: Back Pain, Migraine Time Seen by Provider: 08/04/21 21:06 Source: patient, RN notes reviewed Limitations: no limitations - History of Present Illness Initial Comments: 26-year-old diabetic female with history of bulging disks in her lumbar area as well as diabetes presents to emergency department with right-sided lumbar back pain which is exacerbated by movement, position. Patient states it is relieved with rest and other positions. Patient denies any fever or chills. No problems with urination or bowel movement. Patient able ambulate. No radicular pain. Patient states this started earlier today when she was at work. She does work as a home health aide. No headache, no fever or chills, no changes in vision or hearing, no sore throat or difficulty with speech, no neck pain, no chest pain or shortness of breath, no abdominal pain, no nausea or vomiting, no changes in urination or bowel movements, no numbness or tingling, no extremity pain, no skin rashes or lesions. MD Complaint: back pain - Related Data Home Medications Medication Instructions Recorded Confirmed amLODIPine BESYLATE 5 mg PO DAILY 05/03/20 08/04/21 Empagliflozin/Linagliptin 1 tab PO DAILY 05/07/20 08/04/21 [Glyxambi 10 mg-5 mg Tablet] Insulin Glargine,Hum.rec.anlog 48 unit SQ DAILY@1500 07/10/20 08/04/21 [Lantus Solostar] Pregabalin [Lyrica] 150 mg PO BID 07/10/20 08/04/21 Albuterol Sulfate [Proair Hfa] 2 puff INHALATION RT-Q6H PRN 08/04/21 08/04/21 tiZANidine HCL 2 mg PO DAILY 08/04/21 08/04/21 tiZANidine HCL 4 mg PO HS 08/04/21 08/04/21 Previous Rx's Medication Instructions Recorded metFORMIN HCL [Glucophage] 500 mg PO BID #30 tab 04/26/20 Acetaminophen [Tylenol] 500 mg PO Q4-6H PRN #24 tab 08/04/21 Naproxen [Naprosyn] 500 mg PO Q12HR #24 tab 08/04/21 Allergies Allergy/AdvReac Type Severity Reaction Status Date / Time phenol [From Chloraseptic] Allergy Anaphylaxis Verified 08/04/21 21:44 sodium phenolate Allergy Anaphylaxis Verified 08/04/21 21:44 [From Chloraseptic] Review of Systems ROS Statement: Those systems with pertinent positive or pertinent negative responses have been documented in the HPI. ROS Other: All systems not noted in ROS Statement are negative. Past Medical History Past Medical History: Asthma, Diabetes Mellitus, Hypertension Additional Past Medical History / Comment(s): freq diarrhea,hx PCOS, migraines History of Any Multi-Drug Resistant Organisms: None Reported Past Surgical History: Cholecystectomy, Orthopedic Surgery Additional Past Surgical History / Comment(s): right knee surgery, tooth extractions Past Anesthesia/Blood Transfusion Reactions: No Reported Reaction Additional Past Anesthesia/Blood Transfusion Reaction / Comment(s): no hx blood transfusion Past Psychological History: Anxiety, Depression Smoking Status: Current every day smoker Past Alcohol Use History: None Reported Past Drug Use History: Marijuana - Past Family History Mother Family Medical History: Cancer General Exam - General Exam Comments Initial Comments: Healthy-appearing female in moderate distress secondary to back pain. Limitations: no limitations General appearance: alert, in no apparent distress, obese Head exam: Present: atraumatic, normocephalic, normal inspection Eye exam: Present: normal appearance, PERRL, EOMI. Absent: scleral icterus, conjunctival injection, periorbital swelling ENT exam: Present: normal exam, mucous membranes moist Neck exam: Present: normal inspection. Absent: tenderness, meningismus, lymphadenopathy Respiratory exam: Present: normal lung sounds bilaterally. Absent: respiratory distress, wheezes, rales, rhonchi, stridor Cardiovascular Exam: Present: regular rate, normal rhythm, normal heart sounds. Absent: systolic murmur, diastolic murmur, rubs, gallop, clicks GI/Abdominal exam: Present: soft, normal bowel sounds. Absent: distended, te nderness, guarding, rebound, rigid Extremities exam: Present: normal inspection, full ROM, normal capillary refill. Absent: tenderness, pedal edema, joint swelling, calf tenderness Back exam: Present: normal inspection, tenderness (Patient tender in the right lumbar paraspinal area. No midline tenderness.), paraspinal tenderness, other (Straight leg raise negative bilaterally. Patient does have pain with silverio maneuver on the right.). Absent: full ROM, CVA tenderness (R), CVA tenderness (L), muscle spasm, vertebral tenderness, rash noted Neurological exam: Present: alert, oriented X3, CN II-XII intact, normal gait, reflexes normal, other (Great toe extensor strength is +5 out of 5.). Absent: motor sensory deficit Psychiatric exam: Present: normal affect, normal mood Skin exam: Present: warm, dry, intact, normal color. Absent: rash Course Vital Signs 08/04/21 19:59 Temperature 97.8 F Pulse Rate 96 Respiratory 20 Rate Blood Pressure 121/83 O2 Sat by Pulse 98 Oximetry - Reevaluation(s) Reevaluation #1: 08/04/21 22:26 Medical record is reviewed Symptoms are improved here in the emergency department Patient is informed of results and questions answered Patient in no distress Medical Decision Making - Medical Decision Making -There are no red flags for concerning back pathology. Specifically: -No history of cancer, this is not a mass effect, MRI not indicated. -No anticoagulation, this is not a bleed. -No fevers, no IVDU, this is not an infectious process. -No trauma, no bony pain, x-rays are not indicated. -With a normal neuro exam, and no urinary or bowel retention or incontinence, there is no clinical sign of motor defect or cauda equina - MRI is not indicated at this point. -No pulsating abdominal mass or risk factors for AAA. -Pain is relieved with rest, which is also less concerning. -I do not believe that x-rays or emergent MRI is indicated at this time. -We will treat symptomatically and discharge home with follow up instructions. -Stretching/strengthening exercise given to patient and they will be referred to physical therapy -Patient is instructed to use [id number] analgesics as directed on packaging for pain. - Lab Data Lab Results 08/04/21 08/04/21 Range/Units 20:08 20:08 Urine Color Light Yellow Urine Appearance Cloudy H (Clear) Urine pH 7.0 (5.0-8.0) Ur Specific [place] 1.034 (1.001-1.035) Urine Protein Negative (Negative) Urine Glucose (UA) 4+ H (Negative) Urine Ketones Negative (Negative) Urine Blood Negative (Negative) Urine Nitrite Negative (Negative) Urine Bilirubin Negative (Negative) Urine Urobilinogen <2.0 (<2.0) mg/dL Ur Leukocyte Esterase Negative (Negative) Urine RBC 4 (0-5) /hpf Urine WBC 1 (0-5) /hpf Ur Squamous Epith Cells 9 H (0-4) /hpf Urine Bacteria Rare H (None) /hpf Urine HCG, Qual Not Detected (Not Detectd) Disposition Clinical Impression: Mechanical back pain, Acute lumbar myofascial strain Disposition: HOME SELF-CARE Condition: Stable Instructions (If sedation given, give patient instructions): Acute Low Back Pain (ED) Additional Instructions: Follow-up with your regular physician as directed. Return to the ER immediately if any symptoms worsen, new symptoms arise, or any other problems develop. Prescriptions: Naproxen [Naprosyn] 500 mg PO Q12HR #24 tab Acetaminophen [Tylenol] 500 mg PO Q4-6H PRN #24 tab PRN Reason: Pain Is patient prescribed a controlled substance at d/c from ED?: No Referrals: Mikel Mauro MD [Primary Care Provider] - 1-2 days Time of Disposition: 22:25
[2021-08-04 22:36] VITALS: BP 164/80; PULSE 84; RESP 16
== END 2021-08-04 22:41 | disposition home or self-care (01) ==
LOC: EC 19:21
DX: S39.012A Strain of muscle, fascia and tendon of lower back, initial encounter (principal); J45.909 Unspecified asthma, uncomplicated; E11.9 Type 2 diabetes mellitus without complications; I10 Essential (primary) hypertension; F41.9 Anxiety disorder, unspecified; F32.A Depression, unspecified; F12.90 Cannabis use, unspecified, uncomplicated; F17.200 Nicotine dependence, unspecified, uncomplicated; Z79.4 Long term (current) use of insulin; Z79.899 Other long term (current) drug therapy; X58.XXXA Exposure to other specified factors, initial encounter
CPT/HCPCS: 99283; 96372 ×3; 81001; 81025; J2270; J2360; J1885

== ENCOUNTER 2021-11-01 16:01 | Emergency (ER) | payer OTHER ==
[2021-11-01 17:32] LABS: Basophils # (A) 0.1 k/uL (0-0.2); Basophils % (A) 1 %; Eosinophils # (A) 0.2 k/uL (0-0.7); Eosinophils % (A) 2 %; HCT 42.7 % (34.0-46.0); HGB 14.5 gm/dL (11.4-16.0); Lymphocytes # (A) 2.9 k/uL (1.0-4.8); Lymphocytes % (A) 21 %; MCH 26.7 pg (25.0-35.0); MCV 78.4 fL (80.0-100.0); Mean Platelet Volume 7.3; Monocytes # (A) 0.5 k/uL (0-1.0); Monocytes % (A) 4 %; Neutrophils # (A) 10.1 k/uL (1.3-7.7); Neutrophils % (A) 72 %; Platelet Count 302 k/uL (150-450); RBC 5.45 m/uL (3.80-5.40); RDW 15.8 % (11.5-15.5); WBC 14.1 k/uL (3.8-10.6)
[2021-11-01 17:41] LABS: INR 0.9 (<1.2)
[2021-11-01 17:52] LABS: ALT 60 U/L (4-34); AST 52 U/L (14-36); African American GFR (CKD) >90 (>60 ml/min/1.73 sqM); Albumin 4.9 g/dL (3.5-5.0); Alkaline Phosphatase 100 U/L (38-126); Anion Gap 17 mmol/L; Blood Urea Nitrogen 8 mg/dL (7-17); Calcium 9.9 mg/dL (8.4-10.2); Carbon Dioxide 20 mmol/L (22-30); Chloride 98 mmol/L (98-107); Glucose 159 mg/dL (74-99); Non-African American GFR(CKD) >90 (>60 ml/min/1.73 sqM); Potassium 3.4 mmol/L (3.5-5.1); Sodium 135 mmol/L (137-145); Total Bilirubin 0.6 mg/dL (0.2-1.3); Total Protein 7.8 g/dL (6.3-8.2)
--- NOTE | 2021-11-01 18:00 | XR ---
EXAMINATION TYPE: XR chest 2V DATE OF EXAM: 11/01/2021 5:41 PM COMPARISON: Chest radiographs from 04/22/2019 TECHNIQUE: XR chest 2V Frontal and lateral views of the chest. CLINICAL INDICATION:Female, 26 years old with history of CHEST PAIN ; FINDINGS: Lungs/Pleura: There is no evidence of pleural effusion, focal consolidation, or pneumothorax. Pulmonary vascularity: Unremarkable. Heart/mediastinum: Cardiomediastinal silhouette is unremarkable. Musculoskeletal: No acute osseous pathology. IMPRESSION: No acute cardiopulmonary disease/process.
[2021-11-01 18:10] LABS: Glucose,Whole Blood 137 mg/dL (75-99)
[2021-11-01 18:58] VITALS: RESP 22
[2021-11-01] MEDS ORDERED: LORazepam 1 MG TAB PO STA (19:16)
[2021-11-01] MEDS ORDERED: SODIUM CHLORIDE 0.9% 1,000 ML IV STA (19:16)
[2021-11-01] MEDS ORDERED: POTASSIUM CHLORIDE ER 20 MEQ TAB.ER PO STA (19:18)
--- NOTE | 2021-11-01 19:20 | ED ---
General Adult HPI - General Chief complaint: Chest Pain Stated complaint: High BP, chest pain Time Seen by Provider: 11/01/21 18:43 Source: patient, RN notes reviewed Mode of arrival: wheelchair Limitations: no limitations - History of Present Illness Initial comments: 26-year-old female presents to the emergency department for evaluation of chest discomfort, high blood pressure, and elevated heart rate. She states she has had symptoms for the past 2 days, however reports that has worsened throughout the day today. She states she is feeling anxious due to these symptoms. States her blood pressure medication was recently switched from amlodipine to HCTZ due to peripheral edema. Patient states she thinks the medication is not doing enough to control her blood pressure. Patient describes her chest pain as left anterior chest, left back, and left upper quadrant shooting abdominal pain that is intermittent in nature. Pain does not increase or change with breathing. Does complain of loss of appetite and diarrheah x4 weeks, though is seeing her PCP for this. Denies fever, chills, dizziness, headache, blurry vision, shortness of breath, abdominal pain, nausea, vomiting, or dysuria. - Related Data Home Medications Medication Instructions Recorded Confirmed amLODIPine BESYLATE 5 mg PO DAILY 05/03/20 08/04/21 Empagliflozin/Linagliptin 1 tab PO DAILY 05/07/20 08/04/21 [Glyxambi 10 mg-5 mg Tablet] Insulin Glargine,Hum.rec.anlog 48 unit SQ DAILY@1500 07/10/20 08/04/21 [Lantus Solostar] Pregabalin [Lyrica] 150 mg PO BID 07/10/20 08/04/21 Albuterol Sulfate [Proair Hfa] 2 puff INHALATION RT-Q6H PRN 08/04/21 08/04/21 tiZANidine HCL 2 mg PO DAILY 08/04/21 08/04/21 tiZANidine HCL 4 mg PO HS 08/04/21 08/04/21 Previous Rx's Medication Instructions Recorded metFORMIN HCL [Glucophage] 500 mg PO BID #30 tab 04/26/20 Acetaminophen [Tylenol] 500 mg PO Q4-6H PRN #24 tab 08/04/21 Naproxen [Naprosyn] 500 mg PO Q12HR #24 tab 08/04/21 Allergies Allergy/AdvReac Type Severity Reaction Status Date / Time phenol [From Chloraseptic] Allergy Anaphylaxis Verified 11/01/21 16:57 sodium phenolate Allergy Anaphylaxis Verified 11/01/21 16:57 [From Chloraseptic] Review of Systems ROS Statement: Those systems with pertinent positive or pertinent negative responses have been documented in the HPI. ROS Other: All systems not noted in ROS Statement are negative. Past Medical History Past Medical History: Asthma, Diabetes Mellitus, Hypertension Additional Past Medical History / Comment(s): freq diarrhea,hx PCOS, migraines History of Any Multi-Drug Resistant Organisms: None Reported Past Surgical History: Cholecystectomy, Orthopedic Surgery Additional Past Surgical History / Comment(s): right knee surgery, tooth extractions Past Anesthesia/Blood Transfusion Reactions: No Reported Reaction Additional Past Anesthesia/Blood Transfusion Reaction / Comment(s): no hx blood transfusion Past Psychological History: Anxiety, Depression Smoking Status: Current every day smoker Past Alcohol Use History: None Reported Past Drug Use History: Marijuana - Past Family History Mother Family Medical History: Cancer General Exam Limitations: no limitations (Well-developed, well-nourished female in no acute distress. Initial temperature 98.0, pulse 112, respirations 16, blood pressure 142/93, pulse ox 98% on room air.) General appearance: alert, in no apparent distress Eye exam: Present: normal appearance, PERRL, EOMI. Absent: scleral icterus, conjunctival injection ENT exam: Present: normal exam, normal oropharynx, mucous membranes moist Neck exam: Present: normal inspection, full ROM. Absent: tenderness, meningismus, lymphadenopathy Respiratory exam: Present: normal lung sounds bilaterally. Absent: respiratory distress, wheezes, rales, rhonchi, stridor, chest wall tenderness Cardiovascular Exam: Present: regular rate, normal rhythm, tachycardia, normal heart sounds GI/Abdominal exam: Present: soft, normal bowel sounds. Absent: distended, tenderness, guarding, rebound, rigid Neurological exam: Present: alert, oriented X3, CN II-XII intact Psychiatric exam: Present: anxious Skin exam: Present: warm, dry, intact. Absent: normal color (Sunburn to back and shoulders), rash Course Vital Signs 11/01/21 11/01/21 16:57 18:55 Temperature 98 F Pulse Rate 112 H 112 H Respiratory 16 22 Rate Blood Pressure 142/93 129/91 O2 Sat by Pulse 98 99 Oximetry - Reevaluation(s) Reevaluation #1: 11/01/21 20:30 Upon reevaluation, patient is resting more comfortably. She has been able to tolerate oral intake without difficulty. Her heart rate is observed in the 80s and 90s while at rest, however is noted to increase into the low 100s while sitting upright and talking. Patient does report that she has been having ongoing issues with diarrhea for the past 4 weeks and has seen her PCP regarding this issue. States she is scheduled to have a CT and ultrasound done. Abdominal pain at this time. This patient's care was discussed with my attending. Patient will be discharged home to follow up with endocrinology for further blood pressure management. Medical Decision Making - Medical Decision Making 26-year-old female with a past medical history of type 2 diabetes, PCOS, hypertension, and obesity presents to the emergency department for evaluation of chest pain and elevated heart rate. Upon exam, patient is flushed and anxious, however is in no acute distress. Physical exam findings are unremarkable with the exception of an elevated heart rate while sitting upright and talking. Reports minimal chest discomfort at this time. Denies dizziness. EKG shows sinus tachycardia with no ectopy or ST segment changes. Chest x-ray is unremarkable. Patient was given anxiolytic with improvement. Laboratory studies are reviewed showing an elevated white blood cell count likely attributed to ongoing diarrhea. Potassium was replaced. Liver enzymes mildly elevated consistent with history of fatty liver disease. Patient does have 4+ ketones and 4+ glucose in her urine. Discussed hypertension: Patient recently began taking HCTZ for hypertension after developing significant peripheral edema while on amlodipine. States she is unable to tolerate lisinopril due to dry cough and vomiting. Patient is tolerating oral intake without difficulty. Her heart rate is in the 80s and 90s while at rest. I suspect patient has mild volume deficit related to diarrhea and diuretic use. She will be discharged home and encouraged to increase her intake of fluids. Instructed to follow up with her head of marketing adometry who manages her blood pressure medication. Instructed to all of appointments that her PCP has set up for further evaluation regarding diarrhea. Instructed to return to the emergency department with any new, worsening, or concerning symptoms. Patient verbalizes understanding and agrees with this plan. Attending: Oliver. - Lab Data Result diagrams: 11/01/21 17:05 11/01/21 17:05 Lab Results 0511/01/21 11/01/21 Range/Units 17:05 17:05 17:05 WBC 14.1 H (3.8-10.6) k/uL RBC 5.45 H (3.80-5.40) m/uL Hgb 14.5 (11.4-16.0) gm/dL Hct 42.7 (34.0-46.0) % MCV 78.4 L (80.0-100.0) fL MCH 26.7 (25.0-35.0) pg MCHC 34.0 (31.0-37.0) g/dL RDW 15.8 H (11.5-15.5) % Plt Count 302 (150-450) k/uL MPV 7.3 Neutrophils % 72 % Lymphocytes % 21 % Monocytes % 4 % Eosinophils % 2 % Basophils % 1 % Neutrophils # 10.1 H (1.3-7.7) k/uL Lymphocytes # 2.9 (1.0-4.8) k/uL Monocytes # 0.5 (0-1.0) k/uL Eosinophils # 0.2 (0-0.7) k/uL Basophils # 0.1 (0-0.2) k/uL PT 10.0 (9.0-12.0) sec INR 0.9 (<1.2) D-Dimer (<0.60) mg/L FEU Sodium 135 L (137-145) mmol/L Potassium 3.4 L (3.5-5.1) mmol/L Chloride 98 (98-107) mmol/L Carbon Dioxide 20 L (22-30) mmol/L Anion Gap 17 mmol/L BUN 8 (7-17) mg/dL Creatinine 0.38 L (0.52-1.04) mg/dL Est GFR (CKD-EPI)AfAm >90 (>60 ml/min/1.73 sqM) Est GFR (CKD-EPI)NonAf >90 (>60 ml/min/1.73 sqM) Glucose 159 H (74-99) mg/dL POC Glucose (mg/dL) (75-99) mg/dL POC Glu Supervisor Line Department ID Calcium 9.9 (8.4-10.2) mg/dL Total Bilirubin 0.6 (0.2-1.3) mg/dL AST 52 H (14-36) U/L ALT 60 H (4-34) U/L Alkaline Phosphatase 100 (38-126) U/L Troponin I (0.000-0.034) ng/mL Total Protein 7.8 (6.3-8.2) g/dL Albumin 4.9 (3.5-5.0) g/dL Urine Color Urine Appearance (Clear) Urine pH (5.0-8.0) Ur Specific Morley (1.001-1.035) Urine Protein (Negative) Urine Glucose (UA) (Negative) Urine Ketones (Negative) Urine Blood (Negative) Urine Nitrite (Negative) Urine Bilirubin (Negative) Urine Urobilinogen (<2.0) mg/dL Ur Leukocyte Esterase (Negative) Urine RBC (0-5) /hpf Urine WBC (0-5) /hpf Ur Squamous Epith Cells (0-4) /hpf Urine Mucus (None) /hpf Coronavirus (PCR) (Not Detectd) 11/01/21 11/01/21 11/01/21 Range/Units 17:05 17:05 18:08 WBC (3.8-10.6) k/uL RBC (3.80-5.40) m/uL Hgb (11.4-16.0) gm/dL Hct (34.0-46.0) % MCV (80.0-100.0) fL MCH (25.0-35.0) pg MCHC (31.0-37.0) g/dL RDW (11.5-15.5) % Plt Count (150-450) k/uL MPV Neutrophils % % Lymphocytes % % Monocytes % % Eosinophils % % Basophils % % Neutrophils # (1.3-7.7) k/uL Lymphocytes # (1.0-4.8) k/uL Monocytes # (0-1.0) k/uL Eosinophils # (0-0.7) k/uL Basophils # (0-0.2) k/uL PT (9.0-12.0) sec INR (<1.2) D-Dimer 0.47 (<0.60) mg/L FEU Sodium (137-145) mmol/L Potassium (3.5-5.1) mmol/L Chloride (98-107) mmol/L Carbon Dioxide (22-30) mmol/L Anion Gap mmol/L BUN (7-17) mg/dL Creatinine (0.52-1.04) mg/dL Est GFR (CKD-EPI)AfAm (>60 ml/min/1.73 sqM) Est GFR (CKD-EPI)NonAf (>60 ml/min/1.73 sqM) Glucose (74-99) mg/dL POC Glucose (mg/dL) 137 H (75-99) mg/dL POC Glu Supervisor Line Department ID Viola Lew Calcium (8.4-10.2) mg/dL Total Bilirubin (0.2-1.3) mg/dL AST (14-36) U/L ALT (4-34) U/L Alkaline Phosphatase (38-126) U/L Troponin I <0.012 (0.000-0.034) ng/mL Total Protein (6.3-8.2) g/dL Albumin (3.5-5.0) g/dL Urine Color Urine Appearance (Clear) Urine pH (5.0-8.0) Ur Specific Morley (1.001-1.035) Urine Protein (Negative) Urine Glucose (UA) (Negative) Urine Ketones (Negative) Urine Blood (Negative) Urine Nitrite (Negative) Urine Bilirubin (Negative) Urine Urobilinogen (<2.0) mg/dL Ur Leukocyte Esterase (Negative) Urine RBC (0-5) /hpf Urine WBC (0-5) /hpf Ur Squamous Epith Cells (0-4) /hpf Urine Mucus (None) /hpf Coronavirus (PCR) (Not Detectd) 11/01/21 11/01/21 Range/Units 19:27 19:33 WBC (3.8-10.6) k/uL RBC (3.80-5.40) m/uL Hgb (11.4-16.0) gm/dL Hct (34.0-46.0) % MCV (80.0-100.0) fL MCH (25.0-35.0) pg MCHC (31.0-37.0) g/dL RDW (11.5-15.5) % Plt Count (150-450) k/uL MPV Neutrophils % % Lymphocytes % % Monocytes % % Eosinophils % % Basophils % % Neutrophils # (1.3-7.7) k/uL Lymphocytes # (1.0-4.8) k/uL Monocytes # (0-1.0) k/uL Eosinophils # (0-0.7) k/uL Basophils # (0-0.2) k/uL PT (9.0-12.0) sec INR (<1.2) D-Dimer (<0.60) mg/L FEU Sodium (137-145) mmol/L Potassium (3.5-5.1) mmol/L Chloride (98-107) mmol/L Carbon Dioxide (22-30) mmol/L Anion Gap mmol/L BUN (7-17) mg/dL Creatinine (0.52-1.04) mg/dL Est GFR (CKD-EPI)AfAm (>60 ml/min/1.73 sqM) Est GFR (CKD-EPI)NonAf (>60 ml/min/1.73 sqM) Glucose (74-99) mg/dL POC Glucose (mg/dL) (75-99) mg/dL POC Glu Supervisor Line Department ID Calcium (8.4-10.2) mg/dL Total Bilirubin (0.2-1.3) mg/dL AST (14-36) U/L ALT (4-34) U/L Alkaline Phosphatase (38-126) U/L Troponin I (0.000-0.034) ng/mL Total Protein (6.3-8.2) g/dL Albumin (3.5-5.0) g/dL Urine Color Yellow Urine Appearance Cloudy H (Clear) Urine pH 5.5 (5.0-8.0) Ur Specific Morley 1.041 H (1.001-1.035) Urine Protein 1+ H (Negative) Urine Glucose (UA) 4+ H (Negative) Urine Ketones 4+ H (Negative) Urine Blood Negative (Negative) Urine Nitrite Negative (Negative) Urine Bilirubin Negative (Negative) Urine Urobilinogen <2.0 (<2.0) mg/dL Ur Leukocyte Esterase Negative (Negative) Urine RBC 2 (0-5) /hpf Urine WBC 2 (0-5) /hpf Ur Squamous Epith Cells 7 H (0-4) /hpf Urine Mucus Rare H (None) /hpf Coronavirus (PCR) Not Detected (Not Detectd) - EKG Data EKG shows normal: sinus rhythm Rate: tachycardia EKG Comments: EKG obtained at 1705 shows sinus tachycardia. Ventricular rate 101, VT interval 159, QRS duration 96, QT/QTc 359/417. Interpretation abnormal rhythm ECG. - Radiology Data Radiology results: report reviewed, image reviewed Two-view chest x-ray was obtained. Report was reviewed in its entirety. Rajindere brigida per Dr. Mckeon is no acute cardiopulmonary disease/process. Disposition Clinical Impression: Non-cardiac chest pain, Tachycardia Disposition: HOME SELF-CARE Condition: Stable Instructions (If sedation given, give patient instructions): Chest Pain (ED) Additional Instructions: Increase your intake of fluids. Consider adding sugar-free Gatorade twice daily. Follow-up with your PCP as scheduled for CT and ultrasound. Call your head of marketing adometry to schedule a follow up appointment regarding your Blood Pressure medication. Return to the emergency department with any new, worsening, or concerning symptoms. Is patient prescribed a controlled substance at d/c from ED?: No Referrals: Mikel Mauro MD [Primary Care Provider] - 1-2 days Time of Disposition: 21:15
[2021-11-01 19:50] LABS: Appearance,Urine Cloudy (Clear); Bilirubin,Urine Negative (Negative); Blood,Urine Negative (Negative); Color,Urine Yellow; Glucose,Urine (UA) 4+ (Negative); Leukocyte Esterase,Urine Negative (Negative); Mucus,Urine Rare /hpf; Nitrite,Urine Negative (Negative); PH, Urine 5.5 (5.0-8.0); Protein,Urine 1+ (Negative); RBC,Urine 2 /hpf (0-5); Specific Gravity,Urine 1.041 (1.001-1.035); Squamous Epithelial Cell,Urine 7 /hpf (0-4); Urobilinogen,Urine <2.0 mg/dL (<2.0); WBC,Urine 2 /hpf (0-5)
[2021-11-01 20:06] LABS: Ketones,Urine 4+ (Negative)
[2021-11-01 21:46] VITALS: BP 137/87; PULSE 101; TEMP 97
== END 2021-11-01 21:45 | disposition home or self-care (01) ==
LOC: EC 16:01
DX: R07.89 Other chest pain (principal); R00.0 Tachycardia, unspecified; E11.9 Type 2 diabetes mellitus without complications; I10 Essential (primary) hypertension; E78.5 Hyperlipidemia, unspecified; F17.200 Nicotine dependence, unspecified, uncomplicated; Z20.822 Contact with and (suspected) exposure to COVID-19; Z91.048 Other nonmedicinal substance allergy status; Z88.9 Allergy status to unspecified drugs, medicaments and biological substances
CPT/HCPCS: 36415; 71046; 80053; 81001; 84484; 85025; 85379; 85610; 87635; 93005; 99285

== ENCOUNTER → 2021-11-24 | Outpatient (CLI) | payer OTHER ==
--- NOTE | 2021-11-24 21:19 | CT ---
EXAMINATION TYPE: CT abdomen pelvis wo con DATE OF EXAM: 11/24/2021 COMPARISON: 04/16/2020 HISTORY: Bleeding from belly button, abdomen pain, diarrhea. Oral contrast only CT DLP: 1569.40 mGycm Automated exposure control for dose reduction was used. TECHNIQUE: Helical acquisition of images was performed from the lung bases through the pelvis. FINDINGS: LUNG BASES: No significant abnormality is appreciated. LIVER/GB: Enlarged liver measuring 21.8 cm. Severe hepatic steatosis. With this limitation, no defini te hepatic focal lesion identified. Previous cholecystectomy. PANCREAS: No significant abnormality is seen. SPLEEN: No significant abnormality is seen. ADRENALS: No significant abnormality is seen. KIDNEYS: No significant abnormality is seen. FREE AIR: No free air is visualized RETROPERITONEAL ADENOPATHY: None visualized REPRODUCTIVE ORGANS: No gross uterine or adnexal mass yet suboptimally assessed by this CT scan. URINARY BLADDER: No significant abnormality is seen. PELVIC ADENOPATHY: Subcentimeter bilateral inguinal and external iliac lymph nodes, stable. OSSEOUS STRUCTURES: No gross aggressive bone lesion. BOWEL: No significant abnormality is seen. OTHER: No sizable ascites. Focal soft tissue thickening and fat stranding are seen along the umbilicu s, acute inflammatory/infectious process cannot be excluded. No definite abscess formation or soft ti ssue gas. No significant urachal abnormality. Scattered subcentimeter mesenteric lymph nodes, nonspec ific. IMPRESSION: Mild focal soft tissue thickening and fat stranding along the umbilicus which could be related to acu te inflammatory/infectious process. No definite abscess formation or soft tissue gas. No significant urachal abnormality identified. Other incidental findings as described above.
== END | disposition home or self-care (01) ==
LOC: RADCTMAIN 11:55
PROVIDERS: ATTEND Family Medicine
DX: K63.89 Other specified diseases of intestine (principal)
CPT/HCPCS: 74176

== ENCOUNTER → 2022-03-02 | Outpatient (CLI) | payer OTHER ==
--- NOTE | 2022-03-02 19:37 | US ---
EXAMINATION TYPE: US pelvic complete DATE OF EXAM: 03/02/2022 COMPARISON: CT abdomen pelvis 06/17/2019. CLINICAL HISTORY: R10.2 PELVIC PAIN. ongoing pelvic pain during intercourse for years, , h/o endo metriosis, PCOS TECHNIQUE: TA. Transabdominal sonographic images of the pelvis were acquired. Refused TV Date of LMP: 02/08/2022 EXAM MEASUREMENTS: Uterus: 9.1 x 5.4 x 3.7 cm Endometrial Stripe: 1.1 cm Right Ovary: 2.8 x 1.9 x 1.6 cm Left Ovary: not seen 1. Uterus: Anteverted wnl 2. Endometrium: wnl 3. Right Ovary: wnl 4. Left Ovary: not seen due to bowl gas and habitus 5. Bilateral Adnexa: wnl 6. Posterior cul-de-sac: wnl IMPRESSION: 1. No evidence for acute process 2. Endometrium within normal limits for thickness.
== END | disposition home or self-care (01) ==
LOC: RADUSWWP 15:34
PROVIDERS: ATTEND Obstetrics & Gynecology
DX: R10.2 Pelvic and perineal pain (principal)
CPT/HCPCS: 76856

== ENCOUNTER → 2022-03-12 | Outpatient (CLI) | payer OTHER ==
[2022-03-12 18:19] LABS: Basophils # (A) 0.05 X 10*3/uL (0.00-0.10); Basophils % (A) 0.6 %; Eosinophils # (A) 0.15 X 10*3/uL (0.04-0.35); Eosinophils % (A) 1.8 %; HCT 44.3 % (37.2-46.3); HGB 14.5 g/dL (12.0-15.0); Immature Grans, Automated 0.8 %; Lymphocytes # (A) 1.58 X 10*3/uL (0.90-5.00); Lymphocytes % (A) 18.9 %; MCH 25.6 pg (27.0-32.0); MCHC 32.7 g/dL (32.0-37.0); MCV 78.3 fL (80.0-97.0); Mean Platelet Volume 10.1 fL (9.5-12.2); Monocytes # (A) 0.37 X 10*3/uL (0.20-1.00); Monocytes % (A) 4.4 %; NRBC Per 100 WBC 0 /100 WBCS (0.0-0.0); Neutrophils # (A) 6.16 X 10*3/uL (1.80-7.70); Neutrophils % (A) 73.5 %; Platelet Count 274 X 10*3/uL (140-440); RBC 5.66 X 10*6/uL (4.10-5.20); RDW 15.2 % (11.5-14.5); WBC 8.38 X 10*3/uL (4.50-10.00)
[2022-03-12 18:49] LABS: ALT 54 U/L (8-44); AST 43 U/L (13-35); African American GFR (CKD) 166.6 (60.0-200.0); Albumin 4.4 g/dL (3.8-4.9); Albumin/Globulin Ratio 1.76 (1.60-3.17); Alkaline Phosphatase 86 U/L (41-126); Amylase 26 U/L (23-121); BUN/Creat Ratio 27.75 Ratio (12.00-20.00); Blood Urea Nitrogen 11.1 mg/dL (9.0-27.0); Calcium 9.2 mg/dL (8.7-10.3); Carbon Dioxide 21.3 mmol/L (20.0-27.5); Chloride 97 mmol/L (96-109); Creatine Kinase 58 U/L (26-186); Globulin 2.5 g/dL (1.6-3.3); Glucose 252 mg/dL (70-110); Lipase 37 U/L (14-63); Non-African American GFR(CKD) 143.7 (60.0-200.0); Sodium 136 mmol/L (135-145); Total Protein 6.9 g/dL (6.2-8.2)
[2022-03-12 18:56] LABS: Rheumatoid Factor, Qnt <10 IU/mL (0-15)
[2022-03-12 19:18] LABS: Erythrocyte Sedimentation Rate 44 mm/Hr (0-20)
== END | disposition home or self-care (01) ==
LOC: LABWHC1 10:40
PROVIDERS: ATTEND Psychiatry & Neurology Neurology
DX: G62.9 Polyneuropathy, unspecified (principal); R20.8 Other disturbances of skin sensation; E55.9 Vitamin D deficiency, unspecified; M79.7 Fibromyalgia; M35.3 Polymyalgia rheumatica; R10.9 Unspecified abdominal pain
CPT/HCPCS: 36415; 80053; 82150; 82306; 82550; 83690; 84439; 84443; 84481; 85025; 85652; 86038; 86140; 86431

== ENCOUNTER 2022-03-21 12:00 | Emergency (ER) | payer OTHER ==
[2022-03-21 12:18] VITALS: PULSE 84; TEMP 97.6
--- NOTE | 2022-03-21 12:37 | ED ---
General Adult HPI - General Chief complaint: GI Bleed Stated complaint: Blood in stool Time Seen by Provider: 03/21/22 12:26 Source: patient, RN notes reviewed, old records reviewed Mode of arrival: ambulatory Limitations: no limitations - History of Present Illness Initial comments: 26-year-old female presents to the emergency room with multiple episodes of rectal bleeding today. States that blood is in the toilet and dripping from her rectum onto a pad. Denies any other abnormal bleeding. Patient states did see Dr. Salgado yesterday and is scheduled to have a procedure done to evaluate her for intermittent abdominal pain. She does have a history of asthma, diabetes, hypertension, and PCOS. Surgical history of cholecystectomy 2 years ago. She was placed on Zetia last week and was told that the bleeding may be a side effect. Denies any fevers, no nausea or vomiting, no chest pain or difficulty in breathing. -: days(s) (1) Location: abdomen Consistency: now resolved - Related Data Home Medications Medication Instructions Recorded Confirmed amLODIPine BESYLATE 5 mg PO DAILY 05/03/20 08/04/21 Empagliflozin/Linagliptin 1 tab PO DAILY 05/07/20 08/04/21 [Glyxambi 10 mg-5 mg Tablet] Insulin Glargine,Hum.rec.anlog 48 unit SQ DAILY@1500 07/10/20 08/04/21 [Lantus Solostar] Pregabalin [Lyrica] 150 mg PO BID 07/10/20 08/04/21 Albuterol Sulfate [Proair Hfa] 2 puff INHALATION RT-Q6H PRN 08/04/21 08/04/21 tiZANidine HCL 2 mg PO DAILY 08/04/21 08/04/21 tiZANidine HCL 4 mg PO HS 08/04/21 08/04/21 Previous Rx's Medication Instructions Recorded metFORMIN HCL [Glucophage] 500 mg PO BID #30 tab 04/26/20 Acetaminophen [Tylenol] 500 mg PO Q4-6H PRN #24 tab 08/04/21 Naproxen [Naprosyn] 500 mg PO Q12HR #24 tab 08/04/21 Allergies Allergy/AdvReac Type Severity Reaction Status Date / Time phenol [From Chloraseptic] Allergy Anaphylaxis Verified 03/21/22 12:16 sodium phenolate Allergy Anaphylaxis Verified 03/21/22 12:16 [From Chloraseptic] Review of Systems ROS Statement: Those systems with pertinent positive or pertinent negative responses have been documented in the HPI. ROS Other: All systems not noted in ROS Statement are negative. Past Medical History Past Medical History: Asthma, Diabetes Mellitus, Hyperlipidemia, Hypertension Additional Past Medical History / Comment(s): freq diarrhea,hx PCOS, migraines History of Any Multi-Drug Resistant Organisms: None Reported Past Surgical History: Cholecystectomy, Orthopedic Surgery Additional Past Surgical History / Comment(s): right knee surgery, tooth extractions Past Anesthesia/Blood Transfusion Reactions: No Reported Reaction Additional Past Anesthesia/Blood Transfusion Reaction / Comment(s): no hx blood transfusion Past Psychological History: Anxiety, Depression Smoking Status: Never smoker Past Alcohol Use History: None Reported Past Drug Use History: Marijuana - Past Family History Mother Family Medical History: Cancer General Exam Limitations: no limitations General appearance: alert, in no apparent distress Head exam: Present: atraumatic Eye exam: Present: normal appearance. Absent: scleral icterus, conjunctival injection, periorbital swelling ENT exam: Present: mucous membranes moist Neck exam: Absent: tenderness, meningismus Respiratory exam: Present: normal lung sounds bilaterally. Absent: respiratory distress, wheezes, rales, rhonchi, stridor, chest wall tenderness, accessory muscle use Cardiovascular Exam: Present: regular rate GI/Abdominal exam: Present: soft. Absent: distended, tenderness, guarding, rebound, rigid Rectal exam: Present: normal rectal tone, bloody stool, hemorrhoids (External nonthrombosed), tenderness Extremities exam: Present: normal capillary refill. Absent: tenderness, pedal edema Back exam: Absent: tenderness, CVA tenderness (R), CVA tenderness (L), paraspinal tenderness, vertebral tenderness Neurological exam: Present: alert, oriented X3 Psychiatric exam: Present: normal affect, normal mood Skin exam: Present: warm, dry, normal color. Absent: cyanosis, diaphoretic, petechiae, pallor Course Vital Signs 03/21/22 03/21/22 12:16 14:00 Temperature 97.6 F Pulse Rate 84 84 Respiratory 16 15 Rate Blood Pressure 160/100 143/97 O2 Sat by Pulse 97 96 Oximetry Medical Decision Making - Medical Decision Making Patient presents with painless rectal bleeding, multiple episodes since yesterday. States dripping onto a pad even when not having bowel movement. She does have a history of hemorrhoids. On physical exam there is a nonthrombosed and nonbleeding hemorrhoids external. Internal rectal pain with palpation, gross red blood. Hemoglobin 14.9 and hematocrit 45.7. Platelets are within normal limits. Patient did have a CT abdomen performed in November of this year for bleeding from umbilicus which has resolved. Pelvic ultrasound was completed March 02 of this year, within normal limits. Patient's abdomen is soft and nontender. Vital signs are stable. She is schedu led for a capsule endoscopy with Dr. Salgado March 26. She was directed to return to the emergency room with a new or concerning symptoms. Follow up with her primary care doctor and Dr. Salgado next week. She is agreeable to this plan of care. Case discussed with Dr. Boyd - Lab Data Result diagrams: 03/21/22 12:43 03/21/22 12:43 Lab Results 03/21/22 03/21/22 03/21/22 Range/Units 12:40 12:43 12:43 WBC 12.7 H (3.8-10.6) k/uL RBC 5.75 H (3.80-5.40) m/uL Hgb 14.9 (11.4-16.0) gm/dL Hct 45.7 (34.0-46.0) % MCV 79.6 L (80.0-100.0) fL MCH 26.0 (25.0-35.0) pg MCHC 32.6 (31.0-37.0) g/dL RDW 14.6 (11.5-15.5) % Plt Count 283 (150-450) k/uL MPV 7.6 Neutrophils % 69 % Lymphocytes % 24 % Monocytes % 3 % Eosinophils % 2 % Basophils % 1 % Neutrophils # 8.7 H (1.3-7.7) k/uL Lymphocytes # 3.1 (1.0-4.8) k/uL Monocytes # 0.4 (0-1.0) k/uL Eosinophils # 0.2 (0-0.7) k/uL Basophils # 0.1 (0-0.2) k/uL PT 9.6 (9.0-12.0) sec INR 0.9 (<1.2) APTT 23.9 (22.0-30.0) sec Sodium (137-145) mmol/L Potassium (3.5-5.1) mmol/L Chloride (98-107) mmol/L Carbon Dioxide (22-30) mmol/L Anion Gap mmol/L BUN (7-17) mg/dL Creatinine (0.52-1.04) mg/dL Est GFR (CKD-EPI)AfAm (>60 ml/min/1.73 sqM) Est GFR (CKD-EPI)NonAf (>60 ml/min/1.73 sqM) Glucose (74-99) mg/dL Plasma Lactic Acid Castro (0.7-2.0) mmol/L Calcium (8.4-10.2) mg/dL Magnesium (1.6-2.3) mg/dL Total Bilirubin (0.2-1.3) mg/dL AST (14-36) U/L ALT (4-34) U/L Alkaline Phosphatase (38-126) U/L Troponin I (0.000-0.034) ng/mL Total Protein (6.3-8.2) g/dL Albumin (3.5-5.0) g/dL Stool Occult Blood Positive H (Negative) 03/21/22 03/21/22 03/21/22 Range/Units 12:43 12:43 12:43 WBC (3.8-10.6) k/uL RBC (3.80-5.40) m/uL Hgb (11.4-16.0) gm/dL Hct (34.0-46.0) % MCV (80.0-100.0) fL MCH (25.0-35.0) pg MCHC (31.0-37.0) g/dL RDW (11.5-15.5) % Plt Count (150-450) k/uL MPV Neutrophils % % Lymphocytes % % Monocytes % % Eosinophils % % Basophils % % Neutrophils # (1.3-7.7) k/uL Lymphocytes # (1.0-4.8) k/uL Monocytes # (0-1.0) k/uL Eosinophils # (0-0.7) k/uL Basophils # (0-0.2) k/uL PT (9.0-12.0) sec INR (<1.2) APTT (22.0-30.0) sec Sodium 137 (137-145) mmol/L Potassium 3.7 (3.5-5.1) mmol/L Chloride 97 L (98-107) mmol/L Carbon Dioxide 26 (22-30) mmol/L Anion Gap 14 mmol/L BUN 11 (7-17) mg/dL Creatinine 0.29 L (0.52-1.04) mg/dL Est GFR (CKD-EPI)AfAm >90 (>60 ml/min/1.73 sqM) Est GFR (CKD-EPI)NonAf >90 (>60 ml/min/1.73 sqM) Glucose 146 H (74-99) mg/dL Plasma Lactic Acid Castro 2.6 H* (0.7-2.0) mmol/L Calcium 9.6 (8.4-10.2) mg/dL Magnesium 1.8 (1.6-2.3) mg/dL Total Bilirubin 0.5 (0.2-1.3) mg/dL AST 47 H (14-36) U/L ALT 49 H (4-34) U/L Alkaline Phosphatase 101 (38-126) U/L Troponin I <0.012 (0.000-0.034) ng/mL Total Protein 7.6 (6.3-8.2) g/dL Albumin 4.9 (3.5-5.0) g/dL Stool Occult Blood (Negative) Disposition Clinical Impression: GIB (gastrointestinal bleeding) Disposition: HOME SELF-CARE Condition: Good Instructions (If sedation given, give patient instructions): Gastrointestinal Bleeding (ED) Additional Instructions: Increase your fluid intake. Return to the emergency room with any new or concerning symptoms including increased bleeding, abdominal pain, dizziness, chest pain or shortness of breath. Keep your appointment as scheduled with Dr. Salgado next week. Is patient prescribed a controlled substance at d/c from ED?: No Referrals: Mikel Mauro MD [Primary Care Provider] - 1-2 days Sommer Salgado MD [STAFF PHYSICIAN] - 1-2 days Time of Disposition: 13:51
[2022-03-21 13:06] LABS: Basophils # (A) 0.1 k/uL (0-0.2); Basophils % (A) 1 %; Eosinophils # (A) 0.2 k/uL (0-0.7); Eosinophils % (A) 2 %; HCT 45.7 % (34.0-46.0); HGB 14.9 gm/dL (11.4-16.0); Lymphocytes # (A) 3.1 k/uL (1.0-4.8); Lymphocytes % (A) 24 %; MCHC 32.6 g/dL (31.0-37.0); MCV 79.6 fL (80.0-100.0); Mean Platelet Volume 7.6; Monocytes # (A) 0.4 k/uL (0-1.0); Monocytes % (A) 3 %; Neutrophils # (A) 8.7 k/uL (1.3-7.7); Neutrophils % (A) 69 %; Platelet Count 283 k/uL (150-450); RBC 5.75 m/uL (3.80-5.40); RDW 14.6 % (11.5-15.5); WBC 12.7 k/uL (3.8-10.6)
[2022-03-21 13:14] LABS: ALT 49 U/L (4-34); AST 47 U/L (14-36); African American GFR (CKD) >90 (>60 ml/min/1.73 sqM); Albumin 4.9 g/dL (3.5-5.0); Alkaline Phosphatase 101 U/L (38-126); Anion Gap 14 mmol/L; Blood Urea Nitrogen 11 mg/dL (7-17); Calcium 9.6 mg/dL (8.4-10.2); Carbon Dioxide 26 mmol/L (22-30); Chloride 97 mmol/L (98-107); Glucose 146 mg/dL (74-99); Magnesium 1.8 mg/dL (1.6-2.3); Non-African American GFR(CKD) >90 (>60 ml/min/1.73 sqM); Potassium 3.7 mmol/L (3.5-5.1); Sodium 137 mmol/L (137-145); Total Bilirubin 0.5 mg/dL (0.2-1.3); Total Protein 7.6 g/dL (6.3-8.2)
[2022-03-21 13:33] LABS: INR 0.9 (<1.2); Partial Thromboplastin Time 23.9 sec (22.0-30.0); Prothrombin Time 9.6 sec (9.0-12.0)
[2022-03-21 14:01] VITALS: BP 143/97; RESP 15
== END 2022-03-21 14:06 | disposition home or self-care (01) ==
LOC: EC 12:00
DX: K92.2 Gastrointestinal hemorrhage, unspecified (principal); J45.909 Unspecified asthma, uncomplicated; E11.9 Type 2 diabetes mellitus without complications; F32.A Depression, unspecified; F41.9 Anxiety disorder, unspecified; F12.90 Cannabis use, unspecified, uncomplicated; E78.5 Hyperlipidemia, unspecified; I10 Essential (primary) hypertension; Z79.84 Long term (current) use of oral hypoglycemic drugs; Z79.4 Long term (current) use of insulin; Z79.891 Long term (current) use of opiate analgesic; Z79.899 Other long term (current) drug therapy; Z79.51 Long term (current) use of inhaled steroids; Z88.6 Allergy status to analgesic agent
CPT/HCPCS: 36415; 80053; 82272; 83605; 83735; 84484; 85025; 85610; 85730; 99284

== ENCOUNTER → 2022-03-26 | Outpatient (CLI) | payer OTHER ==
--- NOTE | 2022-03-26 14:05 | FL ---
EXAMINATION TYPE: FL UGI w small bowel DATE OF EXAM: 03/26/2022 COMPARISON: CT abdomen and pelvis 11/24/2021, KUB 07/10/2020. HISTORY: Diarrhea, cramping and constipation. TECHNIQUE: A double contrast UGI study is performed with small bowel follow through. A total of 35 seconds of fluoroscopic time was utilized during procedure and 101 images obtained. FINDINGS: [employer] image of the abdomen shows no gross abnormality. The esophagus shows normal motility and emptying into the stomach. No evidence of hiatal hernia or s tricture noted. The stomach shows normal distensibility, peristalsis, and mucosal folds. No evidence of any mass or ulcer disease. No significant esophageal reflux was seen during real time performance of this study. The duodenal bulb and sweep are unremarkable. The small bowel study shows normal transit to the colon at 4 hours. There is normal mucosal fold pat tern throughout the small bowel. There is no evidence of any stricture or filling defect noted. The terminal ileum is unremarkable. IMPRESSION: Normal upper GI study and small bowel follow through.
== END | disposition home or self-care (01) ==
LOC: RADFLMAIN 08:00
PROVIDERS: ATTEND Internal Medicine Gastroenterology
DX: R10.9 Unspecified abdominal pain (principal)
CPT/HCPCS: 74240; 74248

== ENCOUNTER 2022-06-18 10:19 | Day surgery (SDC) | payer OTHER ==
[~2022-06-18 10:19] MED LIST changes: -ACETAMINOPHEN TAB 500 MG TAB PO PRN; -HEPARIN SODIUM,PORCINE 5,000 UNIT/ML 1 ML VIAL SQ PRN; -HYDROmorphone 0.5 MG/0.5 ML SYRINGE IVP PRN; -LACTATED RINGERS 1,000 ML IV SCH; -MIDAZOLAM 2 MG/2 ML VIAL IV PRN; -ONDANSETRON 4 MG/2 ML VIAL IVP PRN; +SODIUM CHLORIDE 0.9% 1,000 ML IV SCH; -ceFAZolin 3 GM in SODIUM CHLORIDE 0.9% 100 ML IVPB PRN
[2022-06-18 10:40] VITALS: BP 132/81; PULSE 96; RESP 18; TEMP 97.6
[2022-06-18 10:42] LABS: Glucose,Whole Blood 205 mg/dL (70-110)
--- NOTE | 2022-06-18 14:41 | P.EPPROC ---
- EP Procedure Note Electrophysiology Procedure Note: Diagnosis Recurrent presyncope Twelve-lead EKG shows sinus mechanism 85 beats a minute normal FL narrow QRS normal ST segments normal QT interval Tilt table test per protocol Baseline heart rate 79 beats a minute, Baseline blood pressure 135/80 mmHg Patient was tilted upright at an angle of 70 per protocol Mild increase in heart rate to 100 beats a minute No significant change in blood pressure After 20 minutes the patient felt nauseous and felt that the heart was racing and she is having a panic attack Heart rate at that time was 134 beats a minute With some verbal instructions and reassurance she settled down and her heart rate went down to 110 beats a minute Impression Normal twelve-lead EKG Mild orthostatic intolerance No evidence for neurocardiogenic syncope
== END 2022-06-18 11:45 | disposition home or self-care (01) ==
LOC: CATHEP 10:19
PROVIDERS: ATTEND Internal Medicine Clinical Cardiac Electrophysiology
DX: R55 Syncope and collapse (principal); I10 Essential (primary) hypertension; E11.9 Type 2 diabetes mellitus without complications; Z79.4 Long term (current) use of insulin; Z86.16 Personal history of COVID-19; E78.1 Pure hyperglyceridemia; Z79.02 Long term (current) use of antithrombotics/antiplatelets; Z79.810 Long term (current) use of selective estrogen receptor modulators (SERMs); Z79.899 Other long term (current) drug therapy; F17.210 Nicotine dependence, cigarettes, uncomplicated; E66.9 Obesity, unspecified; Z88.8 Allergy status to other drugs, medicaments and biological substances
CPT/HCPCS: 81025; 93660

== ENCOUNTER → 2022-10-08 | Outpatient (CLI) | payer OTHER ==
--- NOTE | 2022-10-08 13:21 | XR ---
EXAMINATION TYPE: XR hand complete bilateral DATE OF EXAM: 10/08/2022 CLINICAL HISTORY: pain TECHNIQUE: Frontal, lateral and oblique images of the bilateral hands are obtained. COMPARISON: None. FINDINGS: There is no acute fracture/dislocation evident. The joint spaces appear within normal limi ts. The overlying soft tissue appears unremarkable. IMPRESSION: There is no acute fracture or dislocation ICD 10 NO FRACTURE, INITIAL EVALUATION
[2022-10-08 19:25] LABS: Basophils % (A) 1.1 %; Eosinophils # (A) 0.17 X 10*3/uL (0.04-0.35); Eosinophils % (A) 1.8 %; HCT 45.7 % (37.2-46.3); HGB 13.7 g/dL (12.0-15.0); Immature Grans, Automated 1.3 %; Lymphocytes # (A) 2.12 X 10*3/uL (0.90-5.00); Lymphocytes % (A) 22.3 %; MCH 24.6 pg (27.0-32.0); Mean Platelet Volume 9.9 fL (9.5-12.2); Monocytes # (A) 0.47 X 10*3/uL (0.20-1.00); Monocytes % (A) 4.9 %; NRBC Per 100 WBC 0 /100 WBCS (0.0-0.0); Neutrophils # (A) 6.53 X 10*3/uL (1.80-7.70); Neutrophils % (A) 68.6 %; Platelet Count 277 X 10*3/uL (140-440); RBC 5.57 X 10*6/uL (4.10-5.20); RDW 14.5 % (11.5-14.5); WBC 9.51 X 10*3/uL (4.50-10.00)
[2022-10-09 02:31] LABS: ALT 34 U/L (8-44); AST 20 U/L (13-35); African American GFR (CKD) 159.3 (60.0-200.0); Albumin 4.3 g/dL (3.8-4.9); Albumin/Globulin Ratio 1.87 (1.60-3.17); Alkaline Phosphatase 86 U/L (41-126); BUN/Creat Ratio 21.56 Ratio (12.00-20.00); Blood Urea Nitrogen 9.7 mg/dL (9.0-27.0); Calcium 9.9 mg/dL (8.7-10.3); Carbon Dioxide 25.9 mmol/L (20.0-27.5); Chloride 104 mmol/L (96-109); Chol/HDL Ratio 3.24 Ratio; Globulin 2.3 g/dL (1.6-3.3); Glucose 131 mg/dL (70-110); LDL Cholesterol,Calculated 68.7 mg/dL (0.0-131.0); Magnesium 2.1 mg/dL (1.5-2.4); Non-African American GFR(CKD) 137.4 (60.0-200.0); Potassium 4.6 mmol/L (3.5-5.5); Sodium 142 mmol/L (135-145); Total Bilirubin <0.15 mg/dL (0.30-1.20); Total Protein 6.6 g/dL (6.2-8.2)
[2022-10-09 03:20] LABS: Anti-Smith Ab Interp NEGATIVE (NEGATIVE)
== END | disposition home or self-care (01) ==
LOC: LABWHC1 11:48
PROVIDERS: ATTEND Specialist
DX: M79.641 Pain in right hand (principal); M79.642 Pain in left hand; E78.5 Hyperlipidemia, unspecified; K76.0 Fatty (change of) liver, not elsewhere classified; R20.0 Anesthesia of skin; R68.2 Dry mouth, unspecified; R53.81 Other malaise; R53.83 Other fatigue
CPT/HCPCS: 36415; 80053; 80061; 82306; 82607; 82746; 83735; 85025; 86235